=== PATIENT | male | born 1985 | race Caucasian/White ===

== ENCOUNTER 2023-01-03 15:11 | Outpatient (CLI) | payer OTHER, SELFPAY ==
--- NOTE | ~2023-01-03 | US_ITS ---
EXAMINATION: US soft tissue head and neck DATE: 01/03/2023 15:43 INDICATION: Neck swelling. TECHNIQUE: Multiple ultrasound images of the thyroid were obtained. COMPARISON: None. FINDINGS: The right thyroid lobe measures 5.7 x 2.0 x 2.7 cm. The left thyroid lobe measures 5.6 x 1.2 x 2.3 c m. The thyroid isthmus measures 0.9 cm. There is heterogeneous echotexture and echogenicity throughou t the thyroid gland. No discrete nodules identified. Normal vascular flow is present. IMPRESSION: Enlarged, heterogeneous thyroid as can be seen with Christian's thyroiditis and Graves' disease, depe nding on the clinical context. Reviewed, dictated and finalized at location K. IMPRESSION: Enlarged, heterogeneous thyroid as can be seen with Christian's thyroiditis and Graves' disease, depending on the clinical context.
== END 2023-01-03 15:12 | disposition home or self-care (01) ==
PROVIDERS: PCP Internal Medicine Infectious Disease; Visit Provider Internal Medicine Infectious Disease
DX: R22.1 Localized swelling, mass and lump, neck (principal)
CPT/HCPCS: 76536

== ENCOUNTER 2023-02-28 13:49 | Emergency (ER) | payer OTHER, SELFPAY ==
--- NOTE | ~2023-02-28 | US_ITS ---
EXAMINATION:US venous doppler LE BI INDICATION:Leg swelling TECHNIQUE: Multiple grayscale, color flow and Doppler images of the right and left lower extremity de ep venous systems were obtained and reviewed. COMPARISON:No prior studies for comparison. FINDINGS: The common femoral, superficial femoral and popliteal veins demonstrate normal respiratory variation, augmentation and compressibility. Color flow is also seen within the posterior tibial, pe roneal, greater saphenous and profunda veins. IMPRESSION: 1: No lower extremity deep venous thrombosis. Reviewed, dictated and finalized at location A.
[2023-02-28 14:04] VITALS: BP 145/87; PULSE 99; RESP 20; TEMP 36.4; O2SAT 100
[2023-02-28 18:24] VITALS: BP 147/97; PULSE 83; O2SAT 100
--- NOTE | 2023-02-28 18:31 | PC.NURSE ---
US at bedside.
--- NOTE | 2023-02-28 19:16 | PC.NURSE ---
Patient report given to CITLALI Armstrong. All questions answered and care of patient transferred.
[2023-02-28 19:20] LABS: Basophils Absolute Auto 0.1 K/mm3 (0.0-0.1); Basophils Percent Auto 0.6 % (0.2-1.2); Eosinophils Absolute Auto 0.1 K/mm3 (0-0.3); Hematocrit 53.8 % (42.0-52.0); Hemoglobin 17.7 g/dL (14.0-18.0); Immature Granulocyte Absolute 0.05 K/mm3 (0.00-0.031); Immature Granulocyte Percent A 0.4 % (0-0.5); Lymphocytes Absolute Auto 2.83 K/mm3 (0.9-3.2); Lymphocytes Percent Auto 21.5 % (18.3-44.2); Mean Corpuscular HGB Conc 32.9 g/dl (32-36); Mean Corpuscular Hemoglobin 31.5 pg (26-34); Mean Corpuscular Volume 95.7 fl (80-100); Mean Platelet Volume 9.5 fl (7.4-10.4); Monocytes Absolute Auto 0.8 K/mm3 (0.1-0.6); Neutrophils Absolute Auto 9.3 K/mm3 (1.3-6.7); Neutrophils Percent Auto 70.5 % (45.5-73.1); Platelet Count Result 219 k/mm3 (150-375); Red Blood Count 5.62 M/mm3 (4.6-6.20); Red Cell Distribution Width 13.4 % (11.5-14.5); White Blood Count 13.2 K/mm3 (4.5-10.0)
[2023-02-28 19:23] VITALS: BP 142/96; PULSE 82; RESP 14; TEMP 36.4; O2SAT 98
[2023-02-28 19:30] LABS: Prothrombin Time 13.1 Seconds (11.1-14.7)
[2023-02-28 19:43] LABS: Alanine Aminotransferase 48 U/L (6-50); Albumin Level 4.8 g/dL (3.5-5.1); Alkaline Phosphatase 73 U/L (38-126); Anion Gap 9 mmol/L (8-16); Aspartate Amino Transferase 36 U/L (17-59); Bilirubin,Total 0.7 mg/dL (0.2-1.3); Blood Urea Nitrogen 11 mg/dL (9-20); Calcium 9.2 mg/dL (8.4-10.2); Carbon Dioxide 28 mmol/L (22-30); Chloride 102 mmol/L (98-107); Estimated CRCL calculation 148 ml/min; Estimated Glomerular Filt Rate > 60; Glucose 110 mg/dL (65-110); Potassium 3.9 mmol/L (3.4-5.0); Sodium 139 mmol/L (137-145)
[2023-02-28 19:50] LABS: NT Pro B Type Natriuretic Pept < 20 pg/mL (19.9-100)
--- NOTE | 2023-02-28 19:55 | ED.EXTPRO ---
HPI - Extremity Problem General Chief complaint: Extremity Problem,Nontraumatic Stated complaint: swelling to LLE Time Seen by Provider: 02/28/23 18:05 Source: patient Mode of arrival: ambulatory Limitations: no limitations History of Present Illness HPI Narrative: Patient is a 37-year-old male who presents ED with report of lower extremity pain and swelling. Patient reports he woke up 3 to 4 days ago with pain in his left posterior leg and calf. He states it felt like a charley horse. Pain improved on its own but has been intermittent since then. He has been taking ibuprofen. He notes that he forgot to take his gout medicine for several days before the pain began and does feel that this has improved his pain since resuming the medication. He typically experiences gout in his ankles. He denies swelling of his knee or ankle, erythema, warmth. He then states his significant other noticed swelling in his lower extremity today which prompted his presentation. He notes his brother has a history of CHF and he is very concerned that he may be developing this. Patient declares that he is a hypochondriac and states he was freaking out about this today. He denies any chest pain or shortness of breath. Denies previous history of blood clots. Related Data Allergies Allergy/AdvReac Type Severity Reaction Status Date / Time No Known Allergies Allergy Verified 02/28/23 14:08 Review of Systems Review of Systems: CONSTITUTIONAL: Denies fever, chills, or sweats. CARDIOVASCULAR: See HPI. RESPIRATORY: Denies dyspnea. GASTROINTESTINAL: Denies abdominal pain, nausea, vomiting. MUSCULOSKELETAL: See HPI. NEUROLOGIC: Denies headache, numbness, or weakness. PSYCHIATRIC: See HPI. All systems reviewed & are unremarkable except as noted in HPI and below Exam Narrative: GENERAL: Well appearing, morbidly obese with BMI of 42.3, non-toxic, in no acute distress. HEAD: Normocephalic, atraumatic. NECK: Supple. No adenopathy, no masses. RESPIRATORY: Airway patent, respirations nonlabored. Clear to auscultation bilaterally, no rales, rhonchi, wheezing. CARDIOVASCULAR: Regular rate and rhythm without murmurs, rubs, or gallops. Pedal pulses 2+ and equal bilaterally. ABDOMINAL: Soft, nontender, nondistended, no hepatosplenomegaly. Normoactive BS. MUSCULOSKELETAL: Moves all extremities. Strength/ROM intact without gross deformities. No significant lower extremity edema appreciated on exam. No calf tenderness bilaterally. SKIN: Warm, dry, normal color. No rashes. NEURO: A&O X3. Speech clear. Cranial nerves II-XII grossly intact. Steady gait. No ataxic movements. PSYCHIATRIC: Anxious. Normal interaction. Course Vital Signs Vital signs: Vital Signs Temperature 97.6 F 02/28/23 14:04 Pulse Rate 99 02/28/23 14:04 Respiratory Rate 20 02/28/23 14:04 Blood Pressure 145/87 H 02/28/23 14:04 Pulse Oximetry 100 02/28/23 14:04 Oxygen Delivery Room Air 02/28/23 14:04 Temperature 97.6 F 02/28/23 19:23 Pulse Rate 82 02/28/23 19:23 Respiratory Rate 14 02/28/23 19:23 Blood Pressure 142/96 H 02/28/23 19:23 Pulse Oximetry 98 02/28/23 19:23 Oxygen Delivery Room Air 02/28/23 14:04 MDM - Extremity (Nontraumatic) MDM Narrative Medical decision making narrative: Patient presented to ED with concern for left lower extremity cramping, lower extremity edema. Patient's vital stable upon arrival. No evidence of neurovascular compromise. No significant edema noted on my exam. No calf tenderness. No previous history of blood clots. Venous Doppler ultrasound obtained and negative for DVT bilaterally. BNP also undetectable. Remainder basic laboratory studies fairly unremarkable. CBC with minimal leukocytosis of 13.2. Patient denying infectious symptoms. He does appear very anxious. Discussed lab and imaging findings with patient and provided reassurance. Advised him to continue his prophylactic gout medication as this may be
== END 2023-02-28 20:00 | disposition home or self-care (01) ==
PROVIDERS: Emergency Provider Physician Assistant; PCP Internal Medicine Infectious Disease
DX: R25.2 Cramp and spasm (principal); R60.0 Localized edema; M79.89 Other specified soft tissue disorders
CPT/HCPCS: 36415; 80053; 83880; 85025; 85610; 85730; 93970; 99284

== ENCOUNTER 2023-04-16 14:28 | Outpatient (CLI) | payer OTHER, SELFPAY ==
--- NOTE | ~2023-04-16 | US_ITS ---
US arterial ankle brachial ind INDICATION: Bilateral atherosclerosis. TECHNIQUE: Segmental pressures and plethysmographic and Doppler waveforms of the brachial and lower e xtremity arteries were obtained. COMPARISON: None. FINDINGS: Right and left brachial artery pressures of 1:30 mm Hg and 149 mm Hg, respectively, are concordant (n ormal difference <= 30 mmHg). The right ankle-brachial index (GAUTAM) is 1.03 (normal >= 0.9-1.0). The right great toe-brachial index (TBI) is 0.32 (normal >= 0.60). The left GAUTAM is 0.99. The left TBI is 0.59. IMPRESSION: 1. Normal bilateral ankle-brachial indices. 2: Diminished right toe brachial index, consistent with peripheral arterial disease. Reviewed, dictated and finalized at location B. CAL SERVICE TECHNICIAN IMPRESSION: 1. Normal bilateral ankle-brachial indices. 2: Diminished right toe brachial index, consistent with peripheral arterial di sease.
== END 2023-04-16 14:29 | disposition home or self-care (01) ==
PROVIDERS: PCP Internal Medicine Infectious Disease
DX: I70.203 Unspecified atherosclerosis of native arteries of extremities, bilateral legs (principal)
CPT/HCPCS: 93922

== ENCOUNTER 2024-12-01 18:31 | Emergency (ER) | payer BC, OTHER, SELFPAY ==
--- NOTE | ~2024-12-01 | XR_ITS ---
XR toe 2nd LT min 2V Ordering provider: Mario Parra MD History: . INJURY . Comparison: None. FINDINGS: BONES: Fracture in the base of the proximal phalanx of the second toe JOINT SPACES: Normal. SOFT TISSUES: Normal. IMPRESSION: Fracture in the base of the proximal phalanx of the second toe. Reviewed, dictated and finalized at location A.
--- OUTSIDE RECORDS SUMMARY | 2024-12-01 18:33 | XMS_ITS | Encounter Summary ---
Author Organization [facility] Address [address] [facility] [place] [address] Care Team Providers Care Limnology Teacher Name Role Phone Ronnie Martins MD Primary Care Provider Encounter Details Date Type Department Care Team (Late Contact Info) Description 04/30/2023 Telephone [facility] - Endocrinology [address] [place] [address], [facility] [place] [phone] Latrice Jiménez MD [address] [place] [address] [place] [address] Social History Tobacco Use Types Packs/Day Years Used Date Smoking Tobacco: Never Assessed Sex and Gender Information Value Date Recorded Sex Assigned at Not on file Legal Sex Male 6:58 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 Lis. Pharmacy told patient that it could not be filled due to needing Dr authorization. Patient call back number [phone] UNTING REPRESENTATIVE documented in this encounter Plan of Treatment Upcoming Encounters Date Type Department Care Team (Late Contact Info) Description 02/04/2025 10:40 AM CDT Office Visit [facility] - Endocrinology [address] [place] [address], [place] [address] Latrice Jiménez MD [address] [place] [address] [address] [place] [phone] documented as of this encounter Visit Diagnoses Not on filedocumented in this encounter Care Teams Limnology Teacher Relationship Specialty [place] [address] [place] [phone] PCP - General Internal Medicine 01/13/23 documented as of this encounter
--- OUTSIDE RECORDS SUMMARY | 2024-12-01 18:33 | XMS_ITS | Encounter Summary ---
Author Organization [facility] Address [address] [facility] [place] [address] Care Team Providers Care Group Exercise Class Instructor Name Role Phone Ronnie Martins MD Primary Care Provider Encounter Details Date Type Department Care Team (Late st Contact Info) Description 09/08/2024 Telephone [facility] - Endocrinology [address] [place] [address], [place] [address] Latrice Jiménez MD [address] [place] [phone] Social History Tobacco Use Types Packs/Day Years Used Date Smoking Tobacco: Never Smokeless Tobacco: Never Sex and Gender Information Value Date Recorded Sex Assigned at Not on file Legal Sex Male 6:58 AM KAIAWHINA Gender Identity Not on file Sexual Orientation Not on file documented as of this encounter Miscellaneous Notes * Telephone Encounter - Meera Meza - 09/08/2024 3:45 PM CDT Current Provider: Dr. Jiménez Reason for Call: Mr. Isael Chow stated he spoke w his sleep provider at [facility] and he said Dr. Jiménez would have to refill his tirzepatide (Zepbound) 2.5 MG/0.5ML injection. He's been without for a while. His sleep doctor faxed over info 09/08/24 its under his MEDIA TAB in his [employer]. please call w any questions. Patient Call Back Number: [phone] documented in this encounter Plan of Treatment Upcoming Encounters Date Type Department Care Team (Late st Contact Info) Description 02/04/2025 10:40 AM CDT Office Visit [facility] - Endocrinology [address] [place] [address], [place] [address] Latrice Jiménez MD [address] [place] [address] [place] [phone] documented as of this encounter Visit Diagnoses Not on filedocumented in this encounter Care Teams Group Exercise Class Instructor Relationship Specialty Start Date End Date Ronnie Martins MD [address] [place], [place] [phone] PCP - General Internal Medicine 01/13/23 documented as of this encounter
--- OUTSIDE RECORDS SUMMARY | 2024-12-01 18:33 | XMS_ITS | Encounter Summary ---
Author Organization [facility] Address [address] [facility] [address] Care Team Providers Care Laminating Machine Offbearer Name Role Phone Ronnie Martins MD Primary Care Provider Encounter Details Date Type Department Care Team (Late Contact Info) Description 06/10/2023 Telephone [facility] - Centralized Scheduling [address] [place] [phone] Latrice Jiménez MD [address] [place] [address] [address] [place] [address] Social History Tobacco Use Types Packs/Day Years Used Date Smoking Tobacco: Never Assessed Sex and Gender Information Value Date Recorded Sex Assigned at Not on file 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 Gender Identity Not on file Sexual Orientation Not on file documented as of this encounter Plan of Treatment Upcoming Encounters Date Type Department Care Team (Late Contact Info) Description 02/04/2025 10:40 AM CDT Office Visit [facility] - Endocrinology [address] [place] [address], [place] [phone] Latrice Jiménez MD [address] [place] [address] [address] [place] [phone] documented as of this encounter Visit Diagnoses Not on filedocumented in this encounter Care Teams Laminating Machine Offbearer Relationship Specialty Start Date End Date Ronnie Martins MD [address] [place], [place] [phone] PCP - General Internal Medicine 01/13/23 documented as of this encounter
--- OUTSIDE RECORDS SUMMARY | 2024-12-01 18:33 | XMS_ITS | Clinical Summary ---
Author Organization [facility] Address [address] [place] [phone] Phone Care Team Providers Care Diesel Truck Mechanic Name Role Phone Ronnie Martins MD Primary Care Provider [phone] Social History Tobacco Use Types Packs/Day Years Used Date Smoking Tobacco: Never Assessed Sex and Gender Information Value Date Recorded Sex Assigned at Not on file Legal Sex Male 9:44 AM CDT Gender Identity Not on file Sexual Orientation Not on file Plan of Treatment Health Maintenance Due Date Last Done Comments DTAP/TDAP/TD VACCINES (1 - Tdap) 2004 HEPATITIS B VACCINES (1 of 3 - 19+ 3-dose series) 2004 INFLUENZA VACCINE (#1) 2024 HPV VACCINES Aged Out No longer eligi ble based on patient's age to complete this topic Insurance [place] [facility] OPEN ACCESS Care Teams Diesel Truck Mechanic Relationship Specialty Start Date End Date Ronnie Martins MD PCP - General Internal Medicine 12/14/14
--- OUTSIDE RECORDS SUMMARY | 2024-12-01 18:33 | XMS_ITS | Clinical Summary ---
Author Organization [address] Address [address] [place] [phone] Care Team Providers Care Auto Dealership Porter Name Role Phone Ronnie Martins MD Primary Care Provider Allergies No known active allergies Medications albuterol HFA (PROVENTIL HFA,VENTOLIN HFA,PROAIR HFA) 90 mcg/actuation inhaler albuterol sulfate HFA 90 mcg/actuation aerosol inhaler Active pravastatin (PRAVACHOL) 40 mg tablet Take 40 mg by mouth daily Active Active Problems No known active problems Medical History Medical History Date Comments Hyperlipidemia Gout Social History Tobacco Use Types Packs/Day Years Used Date Smoking Tobacco: Every Day Cigarettes 1.5 15 Smokeless Tobacco: Never Tobacco Cessation:Ready to Q uit: No; Counseling Given: Yes Comments:also smokes marijuana Personal Safety Answer Date Recorded Getting School Help Needed Not on file 07/19 Sex and Gender Information Value Date Recorded Sex Assigned at Not on file Legal Sex Male 7:19 PM CDT Gender Identity Not on file Sexual Orientation Not on file Obstetrics History Last Filed Vital Signs Vital Sign Reading Time Taken Comments Blood Pressure 136/86 01/02/2021 7:32 PM CDT Pulse 90 01/02/2021 7:32 PM CDT Temperature 37.1 C (98.7 F) 01/02/2021 7:32 PM CDT Respiratory Rate 18 01/02/2021 7:32 PM CDT Oxygen Saturation 97% 01/02/2021 7:32 PM CDT Inhaled Oxygen Concentration - - Weight 143.8 kg (317 lb) 01/02/2021 7:32 PM CDT Height 185.4 cm (6' 1) 01/02/2021 7:32 PM CDT Body Mass Index 41.82 01/02/2021 7:32 PM CDT Plan of Treatment Health Maintenance Due Date Last Done Comments Depression Screening 1985 Hepatitis C Screening 1985 Varicella Vaccines (1 of 2 - 13+ 2-dose series) 1998 Hepatitis B Screening 08/11/2003 Regular Well Visit/Exam 18-64 08/11/2003 Pneumococcal vaccine <65 (1 of 2 - PCV) 2004 DTaP/Tdap/Td Vaccine (2 - Td or Tdap) 08/28/2028 08/28/2018 Influenza Vaccine Completed 01/28/2024, 02/21/2022 HPV Vaccines Aged Out No longer eligi ble based on patient's age to complete this topic Insurance [facility] Care Teams Auto Dealership Porter Relationship Specialty Start Date End Date Ronnie Martins MD [address] [address] PCP - General Internal Medicine 01/02/21
--- OUTSIDE RECORDS SUMMARY | 2024-12-01 18:33 | XMS_ITS | Encounter Summary ---
Author Organization [facility] Address [address] [facility] [place] [address] Care Team Providers Care Rfid Technician Name Role Phone Ronnie Martins MD Primary Care Provider Encounter Details Date Type Department Care Team (Late Contact Info) Description 05/08/2023 Telephone [facility] - Endocrinology [address] [place] [address], [facility] [place] [phone] Latrice Jiménez MD [address] [place] [phone] Social History Tobacco Use Types Packs/Day Years Used Date Smoking Tobacco: Never Assessed Sex and Gender Information Value Date Recorded Sex Assigned at Not on file Legal Sex Male 6:58 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 Jiménez know that he has an appt with [place] scheduled on Friday05/13/23 at 1pm. Patient is also checking on he's medication refill request that was sent over. Patient call back number is [phone] SPR[place] FORMER BRACE END documented in this encounter Plan of Treatment Upcoming Encounters Date Type Department Care Team ([facility] Contact Info) Description 02/04/2025 10:40 AM CDT Office Visit [facility] - Endocrinology [address] [place] [address], [place] [address] Latrice Jiménez MD [address] [place] [address] [address] [place] [address] documented as of this encounter Visit Diagnoses Not on filedocumented in this encounter Care Teams Rfid Technician Relationship Specialty Start Date End Date Ronnie Martins MD [address] [place], [place] [phone] PCP - General Internal Medicine 01/13/23 documented as of this encounter
--- OUTSIDE RECORDS SUMMARY | 2024-12-01 18:33 | XMS_ITS | Encounter Summary ---
Author Organization [facility] Address [address] [facility] [place] [address] Care Team Providers Care String Top Sealer Name Role Phone Ronnie Martins MD Primary Care Provider Encounter Details Date Type Department Care Team (Late Contact Info) Description 06/30/2024 Telephone [facility] - Endocrinology [address] [place] [address], [facility] [place] [address] Latrice Jiménez MD [address] [place] [phone] Social History Tobacco Use Types Packs/Day Years Used Date Smoking Tobacco: Never Smokeless Tobacco: Never Sex and Gender Information Value Date Recorded Sex Assigned at Not on file 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 Elder Jiménez Reason for Call: Mr. Isael Chow would like to know is rotten egg burp a result of the increase in his Trulicity dosage. Patient Call Back Number: [phone] TY SPECIALIST documented in this encounter Plan of Treatment Upcoming Encounters Date Type Department Care Team (Late Contact Info) Description 02/04/2025 10:40 AM CDT Office Visit [facility] - Endocrinology [address] [place] [address], [place] [address] Latrice Jiménez MD [address] [place] [address] [address] [place] [address] documented as of this encounter Visit Diagnoses Not on filedocumented in this encounter Care Teams String Top Sealer Relationship Specialty Start Date End Date Ronnie Martins MD [address] [place], [place] [phone] PCP - General Internal Medicine 01/13/23 documented as of this encounter
--- OUTSIDE RECORDS SUMMARY | 2024-12-01 18:33 | XMS_ITS | Encounter Summary ---
Author Organization [facility] Address [address] [facility] [place] [address] Care Team Providers Care Chief Contract Officer Name Role Phone Ronnie Martins MD Primary Care Provider Encounter Details Date Type Department Care Team (Late Contact Info) Description 09/10/2024 Telephone [facility] - Centralized Scheduling [facility] [place] [phone] Latrice Jiménez MD [address] [place] [address] [address] [address] Social History Tobacco Use Types Packs/Day Years Used Date Smoking Tobacco: Never Smokeless Tobacco: Never Sex and Gender Information Value Date Recorded Sex Assigned at Not on file 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 Sex Male 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 Gender Identity Not on file Sexual Orientation Not on file documented as of this encounter Plan of Treatment Upcoming Encounters Date Type Department Care Team (Late Contact Info) Description 02/04/2025 10:40 AM CDT Office Visit [facility] - Endocrinology [address] [place] [address], [place] [address] Latrice Jiménez MD [address] [place] [address] [address] [place] [phone] documented as of this encounter Visit Diagnoses Not on filedocumented in this encounter Care Teams Chief Contract Officer Relationship Specialty Start Date End Date AjRonnie rosenbaum MD [address] [place], [place] [phone] PCP - General Internal Medicine 01/13/23 documented as of this encounter
--- OUTSIDE RECORDS SUMMARY | 2024-12-01 18:33 | XMS_ITS | Encounter Summary ---
Author Organization [facility] Address [address] [facility] [place] [address] Care Team Providers Care Director Of Reimbursement Name Role Phone Ronnie Martins MD Primary Care Provider Reason for Visit * Reason Onset Date Comments Update 05/13/2023 Encounter Details Date Type Department Care Team (Late Contact Info) Description 05/13/2023 Telephone [facility] - Centralized Scheduling [address] [place] [phone] Latrice Jiménez MD [address] [place] [phone] Update Social History Tobacco Use Types Packs/Day Years Used Date Smoking Tobacco: Never Assessed Sex and Gender Information Value Date Recorded Sex Assigned at Not on file Legal Sex Male 6:58 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 Gender Identity Not on file Sexual Orientation Not on file documented as of this encounter Miscellaneous Notes * Telephone Encounter - Amy Evans - 05/13/2023 3:38 PM CST Patient called stating he had his Echo and labwork done today At [facility] MP TRAWLER CAPTAIN documented in this encounter Plan of Treatment Upcoming Encounters Date Type Department Care Team (Late Contact Info) Description 02/04/2025 10:40 AM CDT Office Visit [facility] - Endocrinology [address] [place] [address], [place] [address] Latrice Jiménez MD [address] [facility] [address] [place] [phone] documented as of this encounter Visit Diagnoses Not on filedocumented in this encounter Care Teams Director Of Reimbursement Relationship Specialty Start Date End Date Ronnie Martins MD [address] [place], [place] [phone] PCP - General Internal Medicine 01/13/23 documented as of this encounter
--- OUTSIDE RECORDS SUMMARY | 2024-12-01 18:33 | XMS_ITS | Clinical Summary ---
Author Organization [facility] Address [address] [place] [address] Care Team Providers Care Coin Machine Collector Name Role Phone Ronnie Martins MD Primary Care Provider Source Comments [facility],non-owned Affiliates and Associated Physician Practices is amultiple site organization consisting of ambulatory clinics and hospital sitesin [place], [place], [place] and [place]. This disclosure is being madepursuant to the Care Everywhere program and may not contain all information available regarding this patient. Last updated 18.[facility] Allergies No known active allergies Medications * Be aware that medications may not be up to date on this document. Alwaysverify current medications with the patient. hydroCHLOROthia zide (Hydrodiuril) 25 MG tablet 03/27/20 23 Active allopurinol (Zyloprim) 300 MG tablet Take 1 tablet every day by oral route around the clock for 90 days. Active ezetimibe (Zetia) 10 MG tablet Take 1 tablet every day by oral route at bedtime for 90 days. Active hydrOXYzine HCl (Atarax) 25 MG tablet Take 1 (one) tablet by mouth every 6 hours as needed Active albuterol HFA (Proventil; Ventolin; Proair) 108 (90 Base) MCG/ACT inhaler Inhale 2 inhalations every 6 hours by inhalation route as needed for 30 days. Active ibuprofen (Motrin) 600 MG tablet Take 1 tablet 3 times a day by oral route with meals for 30 days. 01/02/20 23 Active losartan (Cozaar) 25 MG tablet Take 1 tablet every day by oral route as directed for 90 days. Active pravastatin (Pravachol) 10 MG tablet Take 1 (one) tablet by mouth at bedtime Active ONETOUCH DELICA PLUS 30G FINE LANCETSIndicati ons:Type 2 diabetes mellitus without complication, without long-term current use of insulin ([facility]) Use 1 Each once daily 100 Each 06/29/19 25 Active Blood Glucose Monitoring Suppl (ONE TOUCH ULTRA 2) w/Device KITIndications: Type 2 diabetes mellitus without complication, without long-term current use of insulin ([facility]) Use 1 Each as directed 1 kit 06/29/19 25 Active blood glucose (OneTouch Ultra Blue Test) test stripIndication s:Type 2 diabetes mellitus without complication, without long-term current use of insulin ([facility]) Use 1 (one) strip once daily 100 strip 06/29/19 25 Active Insulin Pen Needle 32G X 4 MM MISCIndications :Type 2 diabetes mellitus without complication, without long-term current use of insulin ([facility]),MAGGIE (obstructive sleep apnea),Class 3 severe obesity with serious comorbidity and body mass index (BMI) of 40.0 to 44.9 in adult, unspecified obesity type (HCC) 1 Each by Injection route once daily 100 Each 08/20/19 25 Active tirzepatide (Zepbound) 2.5 MG/0.5ML injectionIndica tions:MAGGIE (obstructive sleep apnea),Class 3 severe obesity with serious comorbidity and body mass index (BMI) of 40.0 to 44.9 in adult, unspecified obesity type (HCC) Inject 2.5 (two and one-half) mg subcutaneously every 7 days Start 2.5 mg weekly, go up next dose in 4 weeks if tolerated 2 mL 2 08/20/19 25 Active tirzepatide (Zepbound) 5 MG/0.5ML injectionIndica tions:MAGGIE (obstructive sleep apnea),Class 3 severe obesity with serious comorbidity and body mass index (BMI) of 40.0 to 44.9 in adult, unspecified obesity type (HCC) Inject 5 (five) mg subcutaneously every 7 days After completion of 2.5 mg dosage for at least 4 weeks 2 mL 3 08/20/19 25 Active liraglutide (Victoza) 18 MG/3ML penIndications: Type 2 diabetes mellitus without complication, without long-term current use of insulin (HCC) Inject 1.2 mg subcutaneously once daily 6 mL 09/01/19 25 Active Semaglutide(0.2 5 or 0.5MG/DOS) 2 MG/3ML Solution Pen-injector (Ozempic (0.25 or 0.5 MG/DOSE))Indica tions:Type 2 diabetes mellitus with hyperglycemia, with long-term current use of insulin (HCC) Inject 0.25-0.5 mg subcutaneously every 7 days (once a week) Start 0.25 mg weekly for 4 weeks then go up to 0.5 mg weekly 3 mL 10/19/19 25 Active Active Problems Problem Noted Date Diagnosed Date MAGGIE (obstructive sleep apnea) 08/19/2024 Class 3 severe obesity with body mass index (BMI) of 40.0 to 44.9 in adult 08/19/2024 Type 2 diabetes mellitus wit h hyperglycemia, with long-term current use of insulin 08/19/2024 Encounters Date Type Department Care Team Description 10/28/2024 Travel 10/20/2024 Telephone [facility] - Endocrinology [address] [place] [phone] Latrice Jiménez MD Pre Authorization 10/19/2024 Telephone [facility] Endocrinology [address] [place] [phone] Latrice Jiménez MD Question 10/13/2024 Telephone [facility] Endocrinology [address] [place] [phone] Latrice Jiménez MD 10/08/2024 Telephone [facility] Endocrinology [address] [place] [phone] Татьяна Dillon RN General 10/08/2024 Telephone [facility] - Endocrinology [address] [place] [phone] Latrice Jiménez MD Med Question 09/10/2024 Telephone [facility] - Centralized Scheduling [address] [place] [phone] Latrice Jiménez MD 09/08/2024 Telephone [facility] - Endocrinology [address] [place] [phone] Latrice Jiménez MD from Last 3 Months Social History Tobacco Use Types Packs/Day Years Used Date Smoking Tobacco: Never Smokeless Tobacco: Never Sex and Gender Information Value Date Recorded Sex Assigned at Not on file 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 Gender Identity Not on file Sexual Orientation Not on file Last Filed Vital Signs Vital Sign Reading Time Taken Comments Blood Pressure 123/79 06/15/2024 10:31 AM MARBLE INSTALLER Pulse 106 06/15/2024 10:31 AM MARBLE INSTALLER Temperature - - Respiratory Rate - - Oxygen Saturation 95% 06/15/2024 10:31 AM MARBLE INSTALLER Inhaled Oxygen Concentration - - Weight 150.6 kg (332 lb) 06/15/2024 10:31 AM MARBLE INSTALLER Height 185.4 cm (6' 1) 06/15/2024 10:31 AM MARBLE INSTALLER Body Mass Index 43.8 06/15/2024 10:31 AM MARBLE INSTALLER Plan of Treatment Upcoming Encounters Date Type Department Care Team (Late st Contact Info) Description 02/04/2025 10:40 AM CDT Office Visit [facility] - Endocrinology [address] [place] [phone] Latrice Jiménez MD [address] [place] [address] [place] [address] Health Maintenance Due Date Last Done Comments HIV SCREENING 2000 HEPATITIS C SCREENING 08/06/2003 DIABETES-SERUM CREATININE 08/11/2003 DTAP/TDAP/TD VACCINES (1 - Tdap) 2004 HEPATITIS B VACCINE (1 of 3 - 19+ 3-dose series) 2004 PNEUMOCOCCAL VACCINE (1 of 2 - PCV) 2004 HPV VACCINE (1 - 3-dose SCDM series) 2012 COVID-19 VACCINE ( - 2023-2 5 season) 2024 DEPRESSION SCREENING 05/19/2024 DIABETES - URINE PROTEIN SCREENING 05/19/2024 DIABETES RETINOPATHY SCREENING 08/19/2024 DIABETES-FOOT EXAM WITH MONOFILAMENT 08/19/2024 DIABETES-HGB A1C 12/13/2024 06/15/2024, 04/29/2023 INFLUENZA VACCINE (#1) 2025 4, 02/21/2022 ZOSTER VACCINE (1 of 2) 08/11/2035 HIB VACCINE Aged Out No longer eligi ble based on patient's age to complete this topic MENINGOCOCCAL (Group B) VACCINE SHARED DECISION-MAKING Aged Out No longer eligible based on patient's age to complete this topic MENINGOCOCCAL GROUPS A/C/Y/W VACCINE Aged Out No longer eligible b ased on patient's age to complete this topic Procedures Procedure Name Priority Date/Time Associated Diagnosis Comments HEMOGLOBIN A1C - POINT OF CARE (AMB) [facility] Routine 06/15/2024 10:39 AM MARBLE INSTALLER Type 2 diabetes mellitus without complication, without long-term current use of insulin from Last 3 Months or Most Recently Relevant to Health Maintenance Results * HEMOGLOBIN A1C - POINT OF CARE (AMB) [facility] (06/15/2024 10:39 AM MARBLE INSTALLER) [facility] [address] Hemoglobin A1c POCT 6.0 % [facility] [address] BLOOD SPECIMEN / Unknown 06/15/2024 10:39 AM MARBLE INSTALLER Latrice Jiménez MD LAB - POINT OF CARE ORDERABLES F inal Result [facility] [address], [facility] [address] [place] [address], [facility] [phone] from Last 3 Months or Most Recently Relevant to Health Maintenance Insurance [facility] Care Teams Coin Machine Collector Relationship Specialty [place] [address] [place] [phone] PCP - General Internal Medicine 01/13/23
--- OUTSIDE RECORDS SUMMARY | 2024-12-01 18:33 | XMS_ITS | Referral Summary ---
Author Organization [address] Address [address] [place] [phone] Care Team Providers Care Layout Inspector Name Role Phone Ronnie Martins MD Primary Care Provider Allergies No known active allergies Medications albuterol HFA (PROVENTIL HFA,VENTOLIN HFA,PROAIR HFA) 90 mcg/actuation inhaler albuterol sulfate HFA 90 mcg/actuation aerosol inhaler Active pravastatin (PRAVACHOL) 40 mg tablet Take 40 mg by mouth daily Active Active Problems No known active problems Social History Tobacco Use Types Packs/Day Years [...] 01/02/2021 7:32 PM CDT Plan of Treatment Not on file Insurance [facility] Care Teams Layout Inspector Relationship Specialty Start Date End Date Ronnie Martins MD [address] [place] [phone] PCP - General Internal Medicine 01/02/21
--- OUTSIDE RECORDS SUMMARY | 2024-12-01 18:33 | XMS_ITS | Encounter Summary ---
Author Organization [facility] Address [address] [facility] [place] [address] Care Team Providers Care Care Transition Coordinator Name Role Phone Ronnie Martins MD Primary Care Provider Encounter Details Date Type Department Care Team (Late st Contact Info) Description 08/13/2024 Telephone [facility] - Endocrinology [address] [place] [address], [facility] [place] [address] Latrice Jiménez MD [address] [place] [phone] Social History Tobacco Use Types Packs/Day Years Used Date Smoking Tobacco: Never Smokeless Tobacco: Never Sex and Gender Information Value Date Recorded Sex Assigned at Not on file 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 Jiménez Reason for Call: Dr. Jiménez changed Mr. Kirkland Kevinrosalie's insulin to liraglutide (Victoza) 18 MG/3ML pen, when he opened it it has no needles He has three pens, is he to get needles. Please advise. [id number] [facility] [phone] [address] Please advise. His girlfriend Patricia called. Patient Call Back Number: [phone] documented in this encounter Plan of Treatment Upcoming Encounters Date Type Department Care Team (Late st Contact Info) Description 02/04/2025 10:40 AM CDT Office Visit [facility] - Endocrinology [address] [place] [address], [place] [phone] Latrice Jiménez MD [address] [place] [address] [place] [phone] documented as of this encounter Visit Diagnoses Not on filedocumented in this encounter Care Teams Care Transition Coordinator Relationship Specialty Start Date End Date Ronnie Martins MD [address] [place] [phone] PCP - General Internal Medicine 01/13/23 documented as of this encounter
--- OUTSIDE RECORDS SUMMARY | 2024-12-01 18:33 | XMS_ITS | Encounter Summary ---
Author Organization [facility] Address [address] [place] [address] Care Team Providers Care Mural Painter Name Role Phone Ronnie Martins MD Primary Care Provider Encounter Details Date Type Department Care Team (Late Contact Info) Description 04/09/2024 Telephone [facility] - Centralized Scheduling [address] [place] [phone] Latrice Jiménez MD [address] [place] [address] [address] [place] [address] Social History Tobacco Use Types Packs/Day Years Used Date Smoking Tobacco: Never Assessed Sex and Gender Information Value Date Recorded Sex Assigned at Not on file 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 Gender Identity Not on file Sexual Orientation Not on file documented as of this encounter Plan of Treatment Upcoming Encounters Date Type Department Care Team (Late Contact Info) Description 02/04/2025 10:40 AM CDT Office Visit [facility] - Endocrinology [address] [place] [address], [place] [phone] Latrice Jiménez MD [address] [place] [address] [address] [place] [phone] documented as of this encounter Visit Diagnoses Not on filedocumented in this encounter Care Teams Mural Painter Relationship Specialty Start Date End Date Ronnie Martins MD [address] [place], [place] [phone] PCP - General Internal Medicine 01/13/23 documented as of this encounter
--- OUTSIDE RECORDS SUMMARY | 2024-12-01 18:33 | XMS_ITS | Encounter Summary ---
Author Organization [facility] Address [address] [facility] [place] [address] Care Team Providers Care Tractor Crane Engineer Name Role Phone Ronnie Martins MD Primary Care Provider Encounter Details Date Type Department Care Team (Late st Contact Info) Description 05/07/2023 Telephone [facility] - Endocrinology [address] [place] [address], [facility] [place] [address] Latrice Jiménez MD [address] [place] [phone] Social History Tobacco Use Types Packs/Day Years Used Date Smoking Tobacco: Never Assessed Sex and Gender Information Value Date Recorded Sex Assigned at Not on file Legal Sex Male 6:[address] COUNSELLOR Gender Identity Not on file Sexual Orientation Not on file documented as of this encounter Miscellaneous Notes * Telephone Encounter - Amalia Ramirez - 05/07/2023 4:08 PM CST Patient called called for prescription refill of Trulicity. Pharmacy needs Dr authorization. Patient has been taking Metformin in the mean time. [id number] - [phone] [facility] [phone] [address] Patient call back number is [phone] COUNSELLOR documented in this encounter Plan of Treatment Upcoming Encounters Date Type Department Care Team (Late st Contact Info) Description 02/04/2025 10:40 AM CDT Office Visit [facility] - Endocrinology [address] [place] [address], [place] [phone] Latrice Jiménez MD [address] [place] [address] [address] [place] [phone] documented as of this encounter Visit Diagnoses Not on filedocumented in this encounter Care Teams Tractor Crane Engineer Relationship Specialty Start Date End Date Ronnie Martins MD [address] [place], [place] [phone] PCP - General Internal Medicine 01/13/23 documented as of this encounter
--- OUTSIDE RECORDS SUMMARY | 2024-12-01 18:33 | XMS_ITS | Encounter Summary ---
Author Organization [facility] Address [address] [facility] [place] [address] Care Team Providers Care Glass Blowing Instructor Name Role Phone Ronnie Martins MD Primary Care Provider Encounter Details Date Type Department Care Team (Late Contact Info) Description 08/25/2024 Telephone [facility] - Centralized Scheduling [facility]ly [facility], [facility] [place] [phone] Latrice Jiménez MD [address] [place] [address] [address] [place] [address] Social History Tobacco Use Types Packs/Day Years Used Date Smoking Tobacco: Never Smokeless Tobacco: Never Sex and Gender Information Value Date Recorded Sex Assigned at Not on file 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 Gender Identity Not on file Sexual Orientation Not on file documented as of this encounter Plan of Treatment Upcoming Encounters Date Type Department Care Team (Late Contact Info) Description 02/04/2025 10:40 AM CDT Office Visit [facility] - Endocrinology [address] [place] [address], [place] [address] Latrice Jiménez MD [address] [place] [address] [address] [place] [phone] documented as of this encounter Visit Diagnoses Not on filedocumented in this encounter Care Teams Glass Blowing Instructor Relationship Specialty Start Date End Date AjRonnie rosenbaum MD [address] [place], [place] [phone] PCP - General Internal Medicine 01/13/23 documented as of this encounter
--- OUTSIDE RECORDS SUMMARY | 2024-12-01 18:33 | XMS_ITS | Encounter Summary ---
Author Organization [facility] Address [address] [facility] [place] [address] Care Team Providers Care City Secretary Name Role Phone Ronnie Martins MD Primary Care Provider Encounter Details Date Type Department Care Team (Late st Contact Info) Description 10/13/2024 Telephone [facility] - Endocrinology [address] [place] [address], [facility] [place] [address] Latrice Jiménez MD [address] [place] [phone] Social History Tobacco Use Types Packs/Day Years Used Date Smoking Tobacco: Never Smokeless Tobacco: Never Sex and Gender Information Value Date Recorded Sex Assigned at Not on file 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 Jiménez Reason for Call: Mr. Isael Chow's girlfriend Patricia called in re: rotten egg burps he is having after the switch from TRULICITY to liraglutide (Victoza) 18 MG/3ML pen, she says he's been having these burps for the last 2 to 3 days. Please call, have nurse call ISABELLA. All else is well, just. Patient Call Back Number: [phone] documented in this encounter Plan of Treatment Upcoming Encounters Date Type Department Care Team (Late st Contact Info) Description 02/04/2025 10:40 AM CDT Office Visit [facility] - Endocrinology [address] [place] [address], [place] [address] Latrice Jiménez MD [address] [place] [address] [place] [address] documented as of this encounter Visit Diagnoses Not on filedocumented in this encounter Care Teams City Secretary Relationship Specialty Start Date End Date Ronnie Martins MD [address] [place], [place] [phone] PCP - General Internal Medicine 01/13/23 documented as of this encounter
--- OUTSIDE RECORDS SUMMARY | 2024-12-01 18:33 | XMS_ITS | Encounter Summary ---
Author Organization [facility] Address [address] [place] [address] Care Team Providers Care Human Resources Mgr Name Role Phone Ronnie Martins MD Primary Care Provider Encounter Details Date Type Department Care Team (Late st Contact Info) Description 06/30/2024 Telephone [facility] - Endocrinology [address] [place] [address], [facility] [place] [address] Latrice Jiménez MD [address] [place] [address] [place] [address] Social History Tobacco Use Types Packs/Day Years Used Date Smoking Tobacco: Never Smokeless Tobacco: Never Sex and Gender Information Value Date Recorded Sex Assigned at Not on file 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 Drug type:Contour Next Gen Level 1 3847 MG/ DL Level 2 111-138 Test Strips Pharmacy:[id number] [facility] [phone] Patient call back number: [phone] . Patients GAVIN : 06/15/2024 Upcoming appointment scheduled for : 10/26/2024 SPECIALIST documented in this encounter Plan of Treatment Upcoming Encounters Date Type Department Care Team (Late st Contact Info) Description 02/04/2025 10:40 AM CDT Office Visit [facility] - Endocrinology [address] [place] [address], [place] [address] Latrice Jiménez MD [address] [place] [address] [place] [address] documented as of this encounter Visit Diagnoses Not on filedocumented in this encounter Care Teams Human Resources Mgr Relationship Specialty Start Date End Date Ronnie Martins MD [address] [place], [place] [phone] PCP - General Internal Medicine 01/13/23 documented as of this encounter
--- OUTSIDE RECORDS SUMMARY | 2024-12-01 18:33 | XMS_ITS | Encounter Summary ---
Author Organization [facility] Address [address] [place] [address] Care Team Providers Care School Guidance Counselor Name Role Phone Ronnie Martins MD Primary Care Provider Encounter Details Date Type Department Care Team (Late st Contact Info) Description 08/17/2024 Telephone [facility] - Endocrinology [address] [place] [address], [facility] [place] [address] Latrice Jiménez MD [address] [place] [phone] Social History Tobacco Use Types Packs/Day Years Used Date Smoking Tobacco: Never Smokeless Tobacco: Never Sex and Gender Information Value Date Recorded Sex Assigned at Not on file 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 Jiménez Reason for Call: Mr. Isael Chow's girlfrind just called again, re his needles. Went to pharmacy this morning and there was no script. She said they were called Friday. Please advise. Mr. Isael Tellez's insulin to liraglutide (Victoza) 18 MG/3ML pen, when he opened it it has no needles He has three pens, is he to get needles. [id number] [facility] [phone] Please advise. His girlfriend Patricia called. Patient Call Back Number: [phone] documented in this encounter Plan of Treatment Upcoming Encounters Date Type Department Care Team (Late st Contact Info) Description 02/04/2025 10:40 AM CDT Office Visit [facility] - Endocrinology [address] [place] [address], [place] [phone] Latrice Jiménez MD [address] [place] [address] [place] [phone] documented as of this encounter Visit Diagnoses Not on filedocumented in this encounter Care Teams School Guidance Counselor Relationship Specialty Start Date End Date Ronnie Martins MD [address] [place], [place] [phone] PCP - General Internal Medicine 01/13/23 documented as of this encounter
[2024-12-01 18:35] VITALS: BP 141/95; PULSE 94; RESP 16; O2SAT 99
--- NOTE | 2024-12-01 20:01 | ED.GENADULT ---
HPI - General Adult General Chief complaint: Unspecified Stated complaint: LEFT 2ND TOE INJURY Time Seen by Provider: 12/01/24 19:25 History of Present Illness HPI narrative: Patient presenting here with injury to left 2nd toe, started about a week ago while at work, then he accidentally kicked the TV stand yesterday and the pain became much worse. Related Data Allergies Allergy/AdvReac Type Severity Reaction Status Date / Time No Known Allergies Allergy Verified 12/01/24 18:33 Review of Systems Review of Systems: All systems reviewed & are unremarkable except as noted in HPI and below Exam Narrative: EXAMINATION OF ORGAN SYSTEMS/BODY AREAS: Constitutional: Vital signs per nursing GENERAL:[No acute distress, non-toxic appearing.] HEAD: Normal with no signs of head trauma. EYES: EOMI, conjunctiva normal ENT: Hearing grossly intact LUNGS: Nonlabored breathing. HEART: Normal DP pulse ABD: [Soft], [nontender to palpation] EXT: Tenderness to palpation to the left 2nd toe SKIN: [No rashes or lesions.] NEURO: [Alert and oriented x 3. No gross focal sensory or strength deficits.] PSYCH: Normal affect Course Vital Signs Vital signs: Vital Signs Pulse Rate 94 12/01/24 18:35 Respiratory Rate 16 12/01/24 18:35 Blood Pressure 141/95 H 12/01/24 18:35 Pulse Oximetry 99 12/01/24 18:35 Pulse Rate 94 12/01/24 18:35 Respiratory Rate 16 12/01/24 18:35 Blood Pressure 141/95 H 12/01/24 18:35 Pulse Oximetry 99 12/01/24 18:35 Medical Decision Making [facility] Narrative Medical decision making narrative: Patient presents here after injuring his left 2nd toe, initially a week ago then made worse yesterday. X-ray here shows tiny fracture left proximal phalanx, nondisplaced. Patient placed in hard shoe, given follow-up information to bobbin winder, discussed with him, stable for discharge with return precautions. Vital Signs Vital Signs: Vital Signs Pulse Rate 94 12/01/24 18:35 Respiratory Rate 16 12/01/24 18:35 Blood Pressure 141/95 H 12/01/24 18:35 Pulse Oximetry 99 12/01/24 18:35 Pulse Rate 94 12/01/24 18:35 Respiratory Rate 16 12/01/24 18:35 Blood Pressure 141/95 H 07/16/25 18:35 Pulse Oximetry 99 12/01/24 18:35 Discharge Plan Discharge Clinical Impression: Fracture of toe Patient Disposition: Home Condition: Stable Instructions: Toe Fracture (ED) Additional Instructions: Please follow-up with foot and ankle specialist. You can always return to the emergency room for any further issues. Patient Language: Italian Follow-up/Referrals: Lakshmi,Deneen Trujillo [Primary Care Provider] - Sam Gibbs Jr., DPM [Physician] - 2 Days
--- OUTSIDE RECORDS SUMMARY | 2024-12-01 20:04 | XMS_ITS | Encounter Summary ---
Author Organization [facility] Address [address] [facility] [place] [address] Care Team Providers Care Processing Clerk Name Role Phone Ronnie Martins MD Primary Care Provider Encounter Details Date Type Department Care Team (Late Contact Info) Description 08/25/2024 Telephone [facility] - Centralized Scheduling [facility] [place] [phone] Latrice Jiménez MD [address] [place] [address] [address] [place] [address] Social History Tobacco Use Types Packs/Day Years Used Date Smoking Tobacco: Never Smokeless Tobacco: Never Sex and Gender Information Value Date Recorded Sex Assigned at Not on file 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 Gender Identity Not on file Sexual Orientation Not on file documented as of this encounter Plan of Treatment Upcoming Encounters Date Type Department Care Team (Late Contact Info) Description 02/04/2025 10:40 AM CDT Office Visit [facility] - Endocrinology [address] [place] [address], [place] [address] Latrice Jiménez MD [address] [place] [address] [address] [place] [phone] documented as of this encounter Visit Diagnoses Not on filedocumented in this encounter Care Teams Processing Clerk Relationship Specialty Start Date End Date AjRonnie rosenbaum MD [address] [place], [place] [phone] PCP - General Internal Medicine 01/13/23 documented as of this encounter
--- OUTSIDE RECORDS SUMMARY | 2024-12-01 20:04 | XMS_ITS | Encounter Summary ---
Author Organization [facility] Address [address] [place] [address] Care Team Providers Care Glass Finisher Name Role Phone Ronnie Martins MD Primary Care Provider Encounter Details Date Type Department Care Team (Late Contact Info) Description 05/08/2023 Telephone [facility] - Endocrinology [address] [place] [address], [facility] [place] [phone] Latrice Jiménez MD [address] [place] [address] Social History Tobacco Use Types Packs/Day Years Used Date Smoking Tobacco: Never Assessed Sex and Gender Information Value Date Recorded Sex Assigned at Not on file 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 Jiménez know that he has an appt with [place] scheduled on Friday05/13/23 at 1pm. Patient is also checking on he's medication refill request that was sent over. Patient call back number is [phone] CH EXAMINER documented in this encounter Plan of Treatment Upcoming Encounters Date Type Department Care Team ([facility] Contact Info) Description 02/04/2025 10:40 AM CDT Office Visit [facility] - Endocrinology [address] [place] [address], [place] [address] Latrice Jiménez MD [address] [place] [address] [address] [place] [address] documented as of this encounter Visit Diagnoses Not on filedocumented in this encounter Care Teams Glass Finisher Relationship Specialty Start Date End Date Ronnie Martins MD [address] [place], [place] [phone] PCP - General Internal Medicine 01/13/23 documented as of this encounter
--- OUTSIDE RECORDS SUMMARY | 2024-12-01 20:04 | XMS_ITS | Encounter Summary ---
Author Organization [facility] Address [address] [facility] [place] [address] Care Team Providers Care Docent Coordinator Name Role Phone Ronnie Martins MD Primary Care Provider Encounter Details Date Type Department Care Team (Late Contact Info) Description 09/10/2024 Telephone [facility] - Centralized Scheduling [facility] [place] [phone] Latrice Jiménez MD [address] [place] [address] [address] [address] Social History Tobacco Use Types Packs/Day Years Used Date Smoking Tobacco: Never Smokeless Tobacco: Never Sex and Gender Information Value Date Recorded Sex Assigned at Not on file 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 Gender Identity Not on file Sexual Orientation Not on file documented as of this encounter Plan of Treatment Upcoming Encounters Date Type Department Care Team (Late Contact Info) Description 02/04/2025 10:40 AM CDT Office Visit [facility] - Endocrinology [address] [place] [address], [place] [address] Latrice Jiménez MD [address] [place] [address] [address] [place] [phone] documented as of this encounter Visit Diagnoses Not on filedocumented in this encounter Care Teams Docent Coordinator Relationship Specialty Start Date End Date AjRonnie rosenbaum MD [address] [place], [place] [phone] PCP - General Internal Medicine 01/13/23 documented as of this encounter
--- OUTSIDE RECORDS SUMMARY | 2024-12-01 20:04 | XMS_ITS | Encounter Summary ---
Author Organization [facility] Address [address] [facility] [place] [address] Care Team Providers Care Shipyard Laborer Name Role Phone Ronnie Martins MD Primary Care Provider Encounter Details Date Type Department Care Team (Late Contact Info) Description 04/09/2024 Telephone [facility] - Centralized Scheduling [address] [place] [phone] Latrice Jiménez MD [address] [place] [address] [address] [place] [address] Social History Tobacco Use Types Packs/Day Years Used Date Smoking Tobacco: Never Assessed Sex and Gender Information Value Date Recorded Sex Assigned at Not on file 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 Gender Identity Not on file Sexual Orientation Not on file documented as of this encounter Plan of Treatment Upcoming Encounters Date Type Department Care Team (Late Contact Info) Description 02/04/2025 10:40 AM CDT Office Visit [facility] - Endocrinology [address] [place] [address], [place] [phone] Latrice Jiménez MD [address] [place] [address] [address] [place] [phone] documented as of this encounter Visit Diagnoses Not on filedocumented in this encounter Care Teams Shipyard Laborer Relationship Specialty Start Date End Date Ronnie Martins MD [address] [place], [place] [phone] PCP - General Internal Medicine 01/13/23 documented as of this encounter
--- OUTSIDE RECORDS SUMMARY | 2024-12-01 20:04 | XMS_ITS | Referral Summary ---
Author Organization [address] Address [address] [place] [phone] Care Team Providers Care Senior Ui Ux Developer Name Role Phone Ronnie Martins MD Primary [...] Plan of Treatment Not on file Insurance [facility] Care Teams Senior Ui Ux Developer Relationship Specialty Start Date End Date Ronnie Martins MD [address] [place] [address] PCP - General Internal Medicine 01/02/21
--- OUTSIDE RECORDS SUMMARY | 2024-12-01 20:04 | XMS_ITS | Encounter Summary ---
Author Organization [facility] Address [address] [facility] [place] [address] Care Team Providers Care Local Area Network Systems Adminstrator Name Role Phone Ronnie Martins MD Primary Care Provider Encounter Details Date Type Department Care Team (Late st Contact Info) Description 08/13/2024 Telephone [facility] - Endocrinology [address] [place] [address], [facility] [address] Latrice Jiménez MD [address] [place] [address] Social History Tobacco Use Types Packs/Day Years Used Date Smoking Tobacco: Never Smokeless Tobacco: Never Sex and Gender Information Value Date Recorded Sex Assigned at Not on file 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 Please advise. [id number] [facility] [phone] [address] Please advise. His girlfriend Patricia called. Patient Call Back Number: [phone] documented in this encounter Plan of Treatment Upcoming Encounters Date Type Department Care Team (Late st Contact Info) Description 02/04/2025 10:40 AM CDT Office Visit [facility] - Endocrinology [address] [place] [address], [place] [phone] Latrice Jiménez MD [address] [place] [address] [place] [phone] documented as of this encounter Visit Diagnoses Not on filedocumented in this encounter Care Teams Local Area Network Systems Adminstrator Relationship Specialty Start Date End Date Ronnie Martins MD [address] [place] [phone] PCP - General Internal Medicine 01/13/23 documented as of this encounter
--- OUTSIDE RECORDS SUMMARY | 2024-12-01 20:04 | XMS_ITS | Encounter Summary ---
Author Organization [facility] Address [address] [place] [address] Care Team Providers Care Project Administrative Assistant Name Role Phone Ronnie Martins MD Primary Care Provider Encounter Details Date Type Department Care Team (Late Contact Info) Description 06/30/2024 Telephone [facility] - Endocrinology [address] [place] [address], [facility] [place] [address] Latrice Jiménez MD [address] [place] [address] Social History Tobacco Use Types Packs/Day Years Used Date Smoking Tobacco: Never Smokeless Tobacco: Never Sex and Gender Information Value Date Recorded Sex Assigned at Not on file 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 Elder Jiménez Reason for Call: Mr. Isael Chow would like to know is rotten egg burp a result of the increase in his Trulicity dosage. Patient Call Back Number: [phone] ATOR REPAIRER documented in this encounter Plan of Treatment Upcoming Encounters Date Type Department Care Team (Late Contact Info) Description 02/04/2025 10:40 AM CDT Office Visit [facility] - Endocrinology [address] [place] [address], [place] [address] Latrice Jiménez MD [address] [place] [address] [address] [place] [address] documented as of this encounter Visit Diagnoses Not on filedocumented in this encounter Care Teams Project Administrative Assistant Relationship Specialty Start Date End Date Ronnie Martins MD [address] [place], [place] [phone] PCP - General Internal Medicine 01/13/23 documented as of this encounter
--- OUTSIDE RECORDS SUMMARY | 2024-12-01 20:04 | XMS_ITS | Encounter Summary ---
Author Organization [facility] Address [address] [facility] [place] [address] Care Team Providers Care Cone Former Name Role Phone Ronnie Martins MD Primary Care Provider Encounter Details Date Type Department Care Team (Late Contact Info) Description 04/30/2023 Telephone [facility] - Endocrinology [address] [place] [address], [facility] [place] [phone] Latrice Jiménez MD [address] [place] [address] [place] [address] Social History Tobacco Use Types Packs/Day Years Used Date Smoking Tobacco: Never Assessed Sex and Gender Information Value Date Recorded Sex Assigned at Not on file Legal Sex Male 6:58 AM ADMISSION NURSE COORDINATOR Gender Identity Not on file Sexual Orientation Not on file documented as of this encounter Miscellaneous Notes * Telephone Encounter - Amalia Ramirez - 04/30/2023 4:05 PM CST 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 Lis. Pharmacy told patient that it could not be filled due to needing Dr authorization. Patient call back number [phone] SSION NURSE COORDINATOR documented in this encounter Plan of Treatment Upcoming Encounters Date Type Department Care Team (Late Contact Info) Description 02/04/2025 10:40 AM CDT Office Visit [facility] - Endocrinology [address] [place] [address], [place] [address] Latrice Jiménez MD [address] [place] [address] [address] [place] [address] documented as of this encounter Visit Diagnoses Not on filedocumented in this encounter Care Teams Cone Former Relationship Specialty [place] [address] [place] [phone] PCP - General Internal Medicine 01/13/23 documented as of this encounter
--- OUTSIDE RECORDS SUMMARY | 2024-12-01 20:04 | XMS_ITS | Encounter Summary ---
Author Organization [facility] Address [address] [facility] [place] [address] Care Team Providers Care Dental Prosthetist Name Role Phone Ronnie Martins MD Primary Care Provider Encounter Details Date Type Department Care Team (Late st Contact Info) Description 09/08/2024 Telephone [facility] - Endocrinology [address] [place] [address], [place] [address] Latrice Jiménez MD [address] [place] [address] Social History Tobacco Use Types Packs/Day Years Used Date Smoking Tobacco: Never Smokeless Tobacco: Never Sex and Gender Information Value Date Recorded Sex Assigned at Not on file 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 Jiménez Reason for Call: Mr. Isael Chow stated he spoke w his sleep provider at [facility] and he said Dr. Jiménez would have to refill his tirzepatide (Zepbound) 2.5 MG/0.5ML injection. He's been without for a while. His sleep doctor faxed over info 09/08/24 its under his MEDIA TAB in his [employer]. please call w any questions. Patient Call Back Number: [phone] documented in this encounter Plan of Treatment Upcoming Encounters Date Type Department Care Team (Late st Contact Info) Description 02/04/2025 10:40 AM CDT Office Visit [facility] - Endocrinology [address] [place] [address], [place] [address] Latrice Jiménez MD [address] [place] [address] [place] [address] documented as of this encounter Visit Diagnoses Not on filedocumented in this encounter Care Teams Dental Prosthetist Relationship Specialty Start Date End Date Ronnie Martins MD [address] [place], [place] [phone] PCP - General Internal Medicine 01/13/23 documented as of this encounter
--- OUTSIDE RECORDS SUMMARY | 2024-12-01 20:04 | XMS_ITS | Encounter Summary ---
Author Organization [facility] Address [address] [facility] [place] [address] Care Team Providers Care Supervisor Microbiology Technologists Name Role Phone Ronnie Martins MD Primary Care Provider Reason for Visit * Reason Onset Date Comments Update 05/13/2023 Encounter Details Date Type Department Care Team (Late Contact Info) Description 05/13/2023 Telephone [facility] - Centralized Scheduling [address] [place] [phone] Latrice Jiménez MD [address] [place] [address] Update Social History Tobacco Use Types Packs/Day Years Used Date Smoking Tobacco: Never Assessed Sex and Gender Information Value Date Recorded Sex Assigned at Not on file 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 Gender Identity Not on file Sexual Orientation Not on file documented as of this encounter Miscellaneous Notes * Telephone Encounter - Amy Evans - 05/13/2023 3:38 PM CST Patient called stating he had his Echo and labwork done today At [facility] ING FLOOR DESK CLERK documented in this encounter Plan of Treatment Upcoming Encounters Date Type Department Care Team (Late Contact Info) Description 02/04/2025 10:40 AM CDT Office Visit [facility] - Endocrinology [address] [place] [address], [place] [address] Latrice Jiménez MD [address] [facility] [address] [place] [address] documented as of this encounter Visit Diagnoses Not on filedocumented in this encounter Care Teams Supervisor Microbiology Technologists Relationship Specialty Start Date End Date Ronnie Martins MD [address] [place], [place] [phone] PCP - General Internal Medicine 01/13/23 documented as of this encounter
--- OUTSIDE RECORDS SUMMARY | 2024-12-01 20:04 | XMS_ITS | Clinical Summary ---
Author Organization [address] Address [address] [place] [phone] Care Team Providers Care Book Shelver Name Role Phone Ronnie Martins MD Primary [...] patient's age to complete this topic Insurance [facility] Care Teams Book Shelver Relationship Specialty Start Date End Date Ronnie Martins MD [address] [address] PCP - General Internal Medicine 01/02/21
--- OUTSIDE RECORDS SUMMARY | 2024-12-01 20:04 | XMS_ITS | Encounter Summary ---
Author Organization [facility] Address [address] [facility] [place] [address] Care Team Providers Care Medication Technician Name Role Phone Ronnie Martins MD Primary Care Provider Encounter Details Date Type Department Care Team (Late st Contact Info) Description 08/17/2024 Telephone [facility] - Endocrinology [address] [place] [address], [facility] [place] [address] Latrice Jiménez MD [address] [place] [address] Social History Tobacco Use Types Packs/Day Years Used Date Smoking Tobacco: Never Smokeless Tobacco: Never Sex and Gender Information Value Date Recorded Sex Assigned at Not on file 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 [facility] #[id number] [facility] [address] [address] Please advise. His girlfriend Patricia called. Patient Call Back Number: [phone] documented in this encounter Plan of Treatment Upcoming Encounters Date Type Department Care Team (Late st Contact Info) Description 02/04/2025 10:40 AM CDT Office Visit [facility] - Endocrinology [address] [place] [address], [place] [address] Latrice Jiménez MD [address] [place] [address] [place] [address] documented as of this encounter Visit Diagnoses Not on filedocumented in this encounter Care Teams Medication Technician Relationship Specialty Start Date End Date Ronnie Martins MD [address] [place], [place] [phone] PCP - General Internal Medicine 01/13/23 documented as of this encounter
--- OUTSIDE RECORDS SUMMARY | 2024-12-01 20:04 | XMS_ITS | Encounter Summary ---
Author Organization [facility] Address [address] [facility] [place] [address] Care Team Providers Care Ssds Mk 2 Advanced Operator Name Role Phone Ronnie Martins MD Primary Care Provider Encounter Details Date Type Department Care Team (Late st Contact Info) Description 05/07/2023 Telephone [facility] - Endocrinology [address] [place] [address], [facility] [place] [address] Latrice Jiménez MD [address] [place] [place] [address] Social History Tobacco Use Types Packs/Day Years Used Date Smoking Tobacco: Never Assessed Sex and Gender Information Value Date Recorded Sex Assigned at Not on file 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 Pharmacy needs Dr authorization. Patient has been taking Metformin in the mean time. [id number] - [address] [facility] [id number] [address] Patient call back number is [phone] R REELER documented in this encounter Plan of Treatment Upcoming Encounters Date Type Department Care Team (Late st Contact Info) Description 02/04/2025 10:40 AM CDT Office Visit [facility] - Endocrinology [address] [place] [address], [place] [phone] Latrice Jiménez MD [address] [place] [address] [address] [place] [phone] documented as of this encounter Visit Diagnoses Not on filedocumented in this encounter Care Teams Ssds Mk 2 Advanced Operator Relationship Specialty Start Date End Date Ronnie Martins MD [address] [place], [place] [phone] PCP - General Internal Medicine 01/13/23 documented as of this encounter
--- OUTSIDE RECORDS SUMMARY | 2024-12-01 20:04 | XMS_ITS | Clinical Summary ---
Author Organization [facility] Address [address] [place] [phone] Phone Care Team Providers Care Roller Die Cutting Machine Operator Name Role Phone Ronnie Martins MD Primary Care Provider [phone] Social History Tobacco Use Types Packs/Day Years [...] [place] [facility] OPEN ACCESS Care Teams Roller Die Cutting Machine Operator Relationship Specialty Start Date End Date Ronnie Martins MD PCP - General Internal Medicine 12/14/14
--- OUTSIDE RECORDS SUMMARY | 2024-12-01 20:04 | XMS_ITS | Encounter Summary ---
Author Organization [facility] Address [address] [facility] [place] [address] Care Team Providers Care Cable Spooler Name Role Phone Ronnie Martins MD Primary Care Provider Encounter Details Date Type Department Care Team (Late st Contact Info) Description 10/13/2024 Telephone [facility] - Endocrinology [address] [place] [address], [facility] [place] [address] Latrice Jiménez MD [address] [place] [phone] Social History Tobacco Use Types Packs/Day Years Used Date Smoking Tobacco: Never Smokeless Tobacco: Never Sex and Gender Information Value Date Recorded Sex Assigned at Not on file 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 Patient Call Back Number: [phone] documented in this encounter Plan of Treatment Upcoming Encounters Date Type Department Care Team (Late st Contact Info) Description 02/04/2025 10:40 AM CDT Office Visit [facility] - Endocrinology [address] [place] [address], [place] [address] Latrice Jiménez MD [address] [place] [address] [place] [address] documented as of this encounter Visit Diagnoses Not on filedocumented in this encounter Care Teams Cable Spooler Relationship Specialty Start Date End Date Ronnie Martins MD [address] [place], [place] [phone] PCP - General Internal Medicine 01/13/23 documented as of this encounter
--- OUTSIDE RECORDS SUMMARY | 2024-12-01 20:04 | XMS_ITS | Encounter Summary ---
Author Organization [facility] Address [address] [facility] [place] [address] Care Team Providers Care Supervisor Food Checkers And Cashiers Name Role Phone Ronnie Martins MD Primary Care Provider Encounter Details Date Type Department Care Team (Late Contact Info) Description 06/10/2023 Telephone [facility] - Centralized Scheduling [address] [place] [phone] Latriec Jiménez MD [address] [place] [address] [address] [place] [address] Social History Tobacco Use Types Packs/Day Years Used Date Smoking Tobacco: Never Assessed Sex and Gender Information Value Date Recorded Sex Assigned at Not on file Legal Sex Male 6:58 AM LEASING 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 Gender Identity Not on file Sexual Orientation Not on file documented as of this encounter Plan of Treatment Upcoming Encounters Date Type Department Care Team (Late Contact Info) Description 02/04/2025 10:40 AM CDT Office Visit [facility] - Endocrinology [address] [place] [address], [place] [phone] Latrice Jiménez MD [address] [place] [address] [address] [place] [phone] documented as of this encounter Visit Diagnoses Not on filedocumented in this encounter Care Teams Supervisor Food Checkers And Cashiers Relationship Specialty Start Date End Date Ronnie Martins MD [address] [place], [place] [phone] PCP - General Internal Medicine 01/13/23 documented as of this encounter
--- OUTSIDE RECORDS SUMMARY | 2024-12-01 20:04 | XMS_ITS | Clinical Summary ---
Author Organization [facility] Address [address] [place] [address] Care Team Providers Care K [employer] Principal Name Role Phone Ronnie Martins MD Primary Care Provider Source Comments [facility],non-owned Affiliates and Associated Physician Practices is amultiple site organization consisting of ambulatory clinics and hospital sitesin [place], [place], [place] and [place]. This disclosure is being madepursuant to the Care Everywhere program and may not contain all information available regarding this patient. Last updated 18.[facility] Allergies No known active allergies Medications * [...] long-term current use of insulin ([facility]) Use 1 Each once daily 100 Each 06/29/19 25 Active Blood Glucose Monitoring Suppl (ONE TOUCH ULTRA 2) w/Device KITIndications: Type 2 diabetes mellitus without complication, without long-term current use of insulin ([facility]) Use 1 Each as directed 1 kit 06/29/19 25 Active blood glucose (OneTouch Ultra Blue Test) test stripIndication s:Type 2 diabetes mellitus without complication, without long-term current use of insulin ([facility]) Use 1 (one) strip once daily 100 strip 06/29/19 25 Active Insulin Pen Needle 32G X 4 MM MISCIndications :Type 2 diabetes mellitus without complication, without long-term current use of insulin ([facility]),MAGGIE (obstructive sleep apnea),Class 3 severe obesity [...] 10/20/2024 Telephone [facility] - Endocrinology [address] [place] [phone] Latrice Jiménez MD Pre Authorization 10/19/2024 Telephone [facility] - Endocrinology [address] [place] [phone] Latrice Jiménez MD Question 10/13/2024 Telephone [facility] - Endocrinology [address] [place] [phone] Latrice Jiménez MD 10/08/2024 Telephone [facility] - Endocrinology [address] [place] [phone] Татьяна Dillon RN General 10/08/2024 Telephone [facility] - Endocrinology [address] [place] [phone] Latrice Jiménez MD Med Question 09/10/2024 Telephone [facility] - Centralized Scheduling [address] [place] [phone] Latrice Jiménez MD 09/08/2024 Telephone [facility] - Endocrinology [address] [place] [phone] Latrice Jiménez MD from Last 3 Months Social History Tobacco Use Types Packs/Day Years Used Date Smoking Tobacco: Never Smokeless Tobacco: Never Sex and Gender Information Value Date Recorded Sex Assigned at Not on file 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 Gender Identity Not on file Sexual Orientation Not on file Last Filed Vital Signs Vital Sign Reading Time Taken Comments Blood Pressure 123/79 06/15/2024 10:31 AM SOLAR SALES SPECIALIST Pulse 106 06/15/2024 10:31 AM SOLAR SALES SPECIALIST Temperature - - Respiratory Rate - - Oxygen Saturation 95% 06/15/2024 10:31 AM SOLAR SALES SPECIALIST Inhaled Oxygen Concentration - - Weight 150.6 kg (332 lb) 06/15/2024 10:31 AM SOLAR SALES SPECIALIST Height 185.4 cm (6' 1) 06/15/2024 10:31 AM SOLAR SALES SPECIALIST Body Mass Index 43.8 06/15/2024 10:31 AM SOLAR SALES SPECIALIST Plan of Treatment Upcoming Encounters Date Type Department Care Team (Late st Contact Info) Description 02/04/2025 10:40 AM CDT Office Visit [facility] - Endocrinology [address] [place] [phone] Latrice Jiménez MD [address] [place] [address] OF [place] [address] Health Maintenance Due Date Last Done Comments [...] CARE (AMB) [facility] Routine 06/15/2024 10:39 AM SOLAR SALES SPECIALIST Type 2 diabetes mellitus without complication, without long-term current use of insulin from Last 3 Months or Most Recently Relevant to Health Maintenance Results * HEMOGLOBIN A1C - POINT OF CARE (AMB) [facility] (06/15/2024 10:39 AM SOLAR SALES SPECIALIST) [facility] Hemoglobin A1c POCT 6.0 % [facility] [address] BLOOD SPECIMEN / Unknown 06/15/2024 10:39 AM SOLAR SALES SPECIALIST Latrice Jiménez MD LAB - POINT OF CARE ORDERABLES F inal Result [facility] [address], [facility] [address] [place] [address], [facility] [phone] from Last 3 Months or Most Recently Relevant to Health Maintenance Insurance [facility] Care Teams [employer] Principal Relationship Specialty [place] [address] [place] [phone] PCP - General Internal Medicine 01/13/23
--- OUTSIDE RECORDS SUMMARY | 2024-12-01 20:04 | XMS_ITS | Encounter Summary ---
Author Organization [facility] Address [address] [facility] [place] [address] Care Team Providers Care Boat Dock Operator Name Role Phone Ronnie Martins MD Primary Care Provider Encounter Details Date Type Department Care Team (Late st Contact Info) Description 06/30/2024 Telephone [facility] - Endocrinology [address] [place] [address], [facility] [address] Latrice Jiménez MD [address] [place] [address] [place] [address] Social History Tobacco Use Types Packs/Day Years Used Date Smoking Tobacco: Never Smokeless Tobacco: Never Sex and Gender Information Value Date Recorded Sex Assigned at Not on file Legal Sex 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 Drug type:Contour Next Gen Level 1 3847 MG/ DL Level 2 111-138 Test Strips Pharmacy:[facility] #[id number] [facility] [phone] Patient call back number: [phone] . Patients GAVIN : 06/15/2024 Upcoming appointment scheduled for : 10/26/2024 ONAL CARE HOME ADMINISTRATOR documented in this encounter Plan of Treatment Upcoming Encounters Date Type Department Care Team (Late st Contact Info) Description 02/04/2025 10:40 AM CDT Office Visit [facility] - Endocrinology [address] [place] [address], [place] [address] Latrice Jiménez MD [address] [place] [address] [place] [phone] documented as of this encounter Visit Diagnoses Not on filedocumented in this encounter Care Teams Boat Dock Operator Relationship Specialty Start Date End Date Ronnie Martins MD [address] [place], [place] [phone] PCP - General Internal Medicine 01/13/23 documented as of this encounter
== END 2024-12-01 20:13 | disposition home or self-care (01) ==
PROVIDERS: Emergency Provider Emergency Medicine; PCP Internal Medicine Infectious Disease
DX: S92.512A Displaced fracture of proximal phalanx of left lesser toe(s), initial encounter for closed fracture (principal); W22.09XA Striking against other stationary object, initial encounter
CPT/HCPCS: 73660; 99284

== ENCOUNTER 2025-03-18 08:24 | Outpatient (CLI) | payer BC, OTHER, SELFPAY ==
--- NOTE | ~2025-03-18 | US_ITS ---
Clinical history:Localized swelling EXAM:Ultrasound thyroid TECHNIQUE:Multiple static grayscale images and color Doppler images were obtained of the thyroid gland. Comparisons:Ultrasound soft tissue head and neck 12/24/2022 FINDINGS: Right thyroid lobe is enlarged and heterogeneous and measures 6.0 x 2.7 x 2.7 cm. Left thyroid lobe is enlarged and heterogeneous and measures 6.1 x 1.9 x 2.2 cm. Isthmus is enlarged and heterogeneous and measures 0.8 cm. Minimal vascular flow throughout the thyroid gland. No discrete thyroid nodules identified. IMPRESSION: 1. Thyroid gland is enlarged and heterogeneous. Reviewed, dictated and finalized at location Q.
--- OUTSIDE RECORDS SUMMARY | 2025-03-18 08:41 | XMS_ITS | Clinical Summary ---
Author Organization [address] Address [address] [place] [phone] Care Team Providers Care Membership Coordinator Name Role Phone Ronnie Martins MD Primary Care Provider Allergies No known active allergies Medications albuterol HFA (PROVENTIL HFA,VENTOLIN HFA,PROAIR HFA) 90 mcg/actuation inhaler albuterol sulfate HFA 90 mcg/actuation aerosol inhaler Active pravastatin (PRAVACHOL) 40 mg tablet Take 40 mg by mouth daily Active Active Problems Problem Noted Date Diagnosed Date Hyperlipidemia 01/14/2025 Gastroesophageal reflux disease 01/14/2025 Gout 01/14/2025 Obstructive sleep apnea 01/14/2025 Metabolic dysfunction-associ ated steatotic liver disease (MASLD) 01/14/2025 Type 2 diabetes mellitus without complication Medical History Medical History Date Comments Hyperlipidemia [...] Plan of Treatment Not on file Insurance [facility] Care Teams Membership Coordinator Relationship Specialty Start Date End Date Ronnie Martins MD [address] [place] [address] PCP - General Internal Medicine 01/02/21
--- OUTSIDE RECORDS SUMMARY | 2025-03-18 08:41 | XMS_ITS | Data Portability ---
Author Organization KIMBERLEY JACINTOArmin Yee Address [address] [facility] [place] [address] Care Team Providers Care Machine Engraver Name Role Phone RONNIE GERMAN Primary Care Provider Assessment Encounter Date Assessment Date Assessment LastModified by Organization Details LastModified Time 09/08/2023 09/08/2023 He is rather paranoid and may be a hypochondriac oajao Not available 09/08/2023 11:58:01 Plan of Treatment Reminders Order Date Submit Date Provider Last Modified By Organization Details Last Modified Time Details Appointments None recorded. Lab lipid panel, serum [address] [facility] Orders, [address] [place], [address], 5 08:26:57 hemoglobi n A1C/hemog lobin total, QN, blood [address] [facility] On [facility] Orders, [address] [place], [address], 5 08:26:[address] [facility] On [facility] Orders, [address] [place], [address], 5 08:27:11 uric acid, serum or plasma 2023 024 [facility] Add On Lab Orders, [address] [place], [address], 5 16:02:01 CBC w/ auto diff 2023 024 [facility] Add On Lab Orders, [address] [place], [address], 5 15:40:09 erythropo ietin, serum 2023 024 [facility] Add On Lab Orders, [address] [place], [address], 5 16:02:01 HbA1c (hemoglob in A1c), blood 2023 024 [facility] Add On Lab Orders, [address] [place], [address], 4 02:49:29 lipid panel, serum 2023 024 [facility] Add On Lab Orders, [address] [place], [address], 4 02:49:29 vitamin B12, serum 2023 024 [facility] Add On Lab Orders, [address] [place], [address], 4 02:49:30 TSH, ultra-sen sitive, serum 2023 024 [facility] Add On Lab Orders, [address] [place], [address], 4 02:49:30 CMP, serum or plasma 2023 024 [facility] Add On Lab Orders, [address] [place], [address], 4 02:49:30 CBC w/ auto diff 2023 024 [facility] Add On Lab Orders, [address] [place], [address], 4 02:49:29 uric acid, serum or plasma 04/22/ 2024 05/06/2 024 [facility] Add On Lab Orders, [address] [place], [address], 4 09:04:41 BMP, serum or plasma 2023 024 [facility] Add On Lab Orders, [address] [place], [address], 4 09:04:41 RPR (rapid plasma reagin), serum 2023 024 [facility] Add On Lab Orders, [address] [place], [address], 4 11:49:54 CT + NG RNA, PCR, unspecifi ed specimen 2023 024 [facility] Add On Lab Orders, [address] [place], [address], 4 11:49:54 HIV 1 + 2, meaningfu l use set 2023 024 [facility] Add On Lab Orders, [address] [place], [address], 4 11:49:54 HbA1c (hemoglob in A1c), blood 2023 024 [facility], [address] [place], [address], 4 15:53:52 lipid panel, serum 2023 024 [facility] Add On Lab Orders, [address] [place], [address], 4 09:04:41 Referral sleep medicine referral 2023 024 doris Rene MD, [address] [place], [address], 5 14:04:29 diabetic ophthalmo logy referral 2023 024 WALLACE Morro Suarez OD, [address], [place], [address], 5 10:07:14 endocrino logy referral 2023 024 doris Jiménez MD, [address] [facility] [address], [place], [address], 14:04:29 psychiatr ist referral 2023 024 oamaria luisao Not available 13:51:52 diabetic ophthalmo logy referral 2023 024 rocío Corbin MD, [address], [place], [address], 12:04:47 physical therapist referral 2023 024 [facility], [address] [facility], [place], [address], 17:34:42 Procedures None recorded. Surgeries None recorded. Imaging US, thyroid - Reported throat swelling [address], [address] [place] [address] [address], [place], [address], 09:49:33 Medication Orders omeprazol e 40 mg capsule,d elayed release 2024 025 [id number], [address], [place], [place], [id number], 5 16:47:28 Tylenol Arthritis Pain 650 mg tablet,ex tended release [address] [facility] #[id number], [address], [place], [place], [id number], 5 16:47:27 Trulicity 1.5 mg/0.5 mL subcutane ous pen injector 2023 025 [facility] #80550, [address], [place], [place], [id number], 5 16:38:06 olmesarta n 20 mg tablet [address] [facility] #02938, [address], [place], [place], [id number], 5 09:18:15 hydrochlo rothiazid e 25 mg tablet 2023 024 [facility] #97421, [address] , [place], [place], [id number], 4 13:27:27 Kenalog 40 mg/mL suspensio n for injection 2023 024 oajao Not available 4 12:05:47 Medrol (Wilfrid) 4 mg tablets in a dose pack [address] [facility] #02206, [address] , [place], [place], [id number], 4 12:06:10 ibuprofen 600 mg tablet [address] [facility] #35364, [address] , [place], [place], [id number], 4 12:06:00 Patient TargetsNo targets recorded. Patient Instructions Encounter Date Encounter Id Patient Instructions Last Modified By Organization Details Last Modified Time 09/03/2023 [id number] plantar fasciiti s: care instructions fharry Not available 09/03/2023 17:03:14 plantar fasciiti s: exercises fharry Not available 09/03/2023 17:03:14 toenail fungus: care instructions fharry Not available 09/03/2023 17:03:14 09/08/2023 [id number] body mass index: care instructions oajao Not available 09/08/2023 12:22:48 learning about healthy weight oajao Not available 09/08/2023 12:22:48 anxiety disorder : care instructions oajao Not available 09/08/2023 12:11:42 learning about anxiety disorders oajao Not available 09/08/2023 12:11:42 Psych Ophthalmology Labs in 2 weeks Follow up in 4 weeks oajao Not available 09/08/2023 12:25:12 01/28/2024 [id number] influenza (flu) vaccine: care instructions oajao Not available 01/28/2024 15:13:28 snoring: care instructions oajao Not available 01/28/2024 15:26:28 type 2 diabetes: care instructions oajao Not available 01/28/2024 15:31:12 fatigue: care instructions oajao Not available 01/28/2024 15:26:48 Stop smoking GI as previously referred Labs Sleep medicine Ophthalmology Endocrinology Follow up in 3 months oajao Not available 01/28/2024 15:34:08 04/20/2024 [id number] A healthy lifestyle: care instructions oajao Not available 04/20/2024 16:31:49 Labs GI, Ophthalmology as referred Increase Trulicity to 1.5 mg weekly ER with rectal bleeding Follow up in 5 weeks oajao Not available 04/20/2024 16:46:43 10/13/2024 [id number] sleep apnea: car e instructions oajao Not available 10/13/2024 16:47:27 learning about type 2 diabetes oajao Not available 10/13/2024 16:47:27 type 2 diabetes: care instructions oajao Not available 10/13/2024 16:47:27 rectal bleeding: care instructions oajao Not available 10/13/2024 16:47:27 Labs US Follow u p to discuss the skin lesion Addendum Foot exam on his next visit oajao Not available 10/13/2024 18:33:20 Reason for Referral Physical Therapist Referral for Metatarsalgia of left foot Referring Physician: Zheng Muñoz Podiatry, Encounter Date: 09/03/2023 Diabetic Ophthalmology Refer ral for Type 2 diabetes mellitus without complication Referring Physician: Ronnie German, Internal Medicine, Encounter Date: 09/08/2023 Psychiatrist Referral for An xiety disorder Referring Physician: Ronnie German Internal Medicine, Encounter Date: 09/08/2023 Sleep Medicine Referral for Snoring Suches score 9, snorer Referring Physician: Ronnie German Internal Medicine, Encounter Date: 01/28/2024 Diabetic Ophthalmology Refer ral for Type 2 diabetes mellitus without complication Referring Physician: Ronnie German Internal Medicine, Encounter Date: 01/28/2024 Endocrinology Referral for T ype 2 diabetes mellitus without complication Follow up DM Referring Physician: Ronnie German Internal Medicine, Encounter Date: 01/28/2024 Results Created Date Observation Date Name Description Value Unit Range Abnormal Flag Note LastModifiedBy Organization Detail LastModifiedTime 06/15/19 25 06/15/2024 Hemog lobin A1c/H emogl obin. total in Blood hemoglobin A1C/hemoglob in.total in blood 6 % Hemog lobin A1c POCT 6.0 % [facility] [address] Not Available Not Available 06/29/2024 16:02:12 10/30/19 25 10/29/2024 Urina lysis compl ete W Refle x Cultu re panel - Urine color of urine by auto Color of urine normal Not Available Not Available 15:29:27 10/30/19 25 10/29/2024 Urina lysis compl ete W Refle x Cultu re panel - Urine appearance of urine Urine specim en normal Not Available Not Available 15:29:27 10/30/19 25 10/29/2024 Urina lysis compl ete W Refle x Cultu re panel - Urine specific gravity of urine by test strip 1.031 1 low: 1.001h igh: 1.03 high Not Available Not Available 10/29/2024 15:29:27 10/30/19 25 10/29/2024 Urina lysis compl ete W Refle x Cultu re panel - Urine pH of urine by test strip 5.5 pH_un its low: 5pH unitsh igh: 9pH units normal Not Available Not Available 10/29/2024 15:29:27 10/30/19 25 10/29/2024 Urina lysis compl ete W Refle x Cultu re panel - Urine leukocytes [#/volume] in urine by test strip Leukoc yte estera se measur ement text: negati ve normal Not Available Not Available 10/29/2024 15:29:27 10/30/19 25 10/29/2024 Urina lysis compl ete W Refle x Cultu re panel - Urine nitrite [presence] in urine by test strip Labora tory test findin g text: negati ve normal Not Available Not Available 10/29/2024 15:29:27 10/30/19 25 10/29/2024 Urina lysis compl ete W Refle x Cultu re panel - Urine protein [mass/volume ] in urine by test strip 10 mg/dL text: negati ve Not Available Not Available 10/29/2024 15:29:27 10/30/19 25 10/29/2024 Urina lysis compl ete W Refle x Cultu re panel - Urine glucose [moles/volum e] in urine by test strip Labora tory test findin g text: normal normal Not Available Not Available 10/29/2024 15:29:27 10/30/19 25 10/29/2024 Urina lysis compl ete W Refle x Cultu re panel - Urine ketones [moles/volum e] in urine by test strip Labora tory test findin g text: negati ve normal Not Available Not Available 10/29/2024 15:29:27 10/30/19 25 10/29/2024 Urina lysis compl ete W Refle x Cultu re panel - Urine urobilinogen [mass/volume ] in urine by test strip Urobil inogen measur ement, urine text: normal normal Not Available Not Available 10/29/2024 15:29:27 10/30/19 25 10/29/2024 Urina lysis compl ete W Refle x Cultu re panel - Urine bilirubin.to travis [mass/volume ] in urine by test strip Urine dipsti ck for biliru bin text: negati ve normal Not Available Not Available 10/29/2024 15:29:27 10/30/19 25 10/29/2024 Urina lysis compl ete W Refle x Cultu re panel - Urine erythrocytes [#/volume] in urine by test strip Urine dipsti ck for blood text: negati ve normal Not Available Not Available 10/29/2024 15:29:27 10/30/19 25 10/29/2024 Urina lysis compl ete W Refle x Cultu re panel - Urine leukocytes [#/area] in urine sediment by automated count Leukoc ytes in urine low: 0/[hpf ]high: 8/[hpf ] normal Not Available Not Available 10/29/2024 15:29:27 10/30/19 25 10/29/2024 Urina lysis compl ete W Refle x Cultu re panel - Urine erythrocytes [#/area] in urine sediment by automated count Blood in urine low: 0/[hpf ]high: 4/[hpf ] normal Not Available Not Available 10/29/2024 15:29:27 10/30/19 25 10/29/2024 Urina lysis compl ete W Refle x Cultu re panel - Urine bacteria [presence] in urine by automated Urine findin g text: none seen Not Available Not Available 10/29/2024 15:29:27 10/30/19 25 10/29/2024 Urina lysis compl ete W Refle x Cultu re panel - Urine mucus [#/area] in urine sediment by automated count Urine findin g text: none seen Not Available Not Available 10/29/2024 15:29:27 10/30/19 25 10/29/2024 Urina lysis compl ete W Refle x Cultu re panel - Urine epithelial cells.squamo us [#/area] in urine sediment by automated count Urine findin g Not Available Not Available 15:29:27 10/30/19 25 10/29/2024 Urina lysis compl ete W Refle x Cultu re panel - Urine crystals [#/area] in urine sediment by automated count Urine findin g text: none seen Not Available Not Available 10/29/2024 15:29:27 12/21/19 25 12/20/2024 strep tococ cus group A Ag scree n specimen source identified (obs) THROAT Not Available Not Available 01/18 12:39:01 12/21/19 25 12/20/2024 strep tococ cus group A Ag scree n streptococcu s group A Ag screen NEGATI VE text: negati ve Not Available Not Available 02/10/2025 12:39:01 12/02/19 25 12/01/2024 XR, foot No observ ation record ed. [facility] [address], [place], [address], 12/02/2024 09:05:19 Result Notes None recorded. Problems Name Problem SNOMED Code Status Onset Date Resolution Date Notes Provider Name and Address Organization Details Recorded Time Gastroesop hageal reflux disease 022697153 Active Not Available [facility] 3 01:31:18 Fingernail injury 010899524 Active Not Available [facility] 3 01:31:18 Acute bronchitis 70416226 Active Not Available [facility] 3 01:31:18 Tinea cruris 066721829 Active [facility] Available [facility] 01:31:18 Dental caries 98814167 Active Not Available [facility] 3 01:31:18 Panic disorder 546084995 Active Not Available [facility] 3 01:31:18 Hyperlipid emia 90869351 Active Ronnie German MD Attn: [place], [address] , [facility] 4 16:31:25 Sexually transmitte d infectious disease 0765356 Active Not Available [facility] 3 01:31:18 Folliculit is 95915938 Active Not Available [facility] 3 01:31:18 Harmful pattern of use of Cannabis 11545151 Active Not Available [facility] 3 01:31:18 Sebaceous cyst of scrotum 59208388 Active Not Available [facility] 3 01:31:18 Pain in testicle 65094971 Active Not Available [facility] 3 01:31:18 Obesity 782312616 Active Not Available [facility] 3 01:31:18 Abscess 648668729 Active Not Available [facility] 3 01:31:18 Impaired fasting glycemia 016835058 Active 2018 Not Available [facility] 3 01:31:18 Gout 21881248 Active 2019 Not Available [facility] 3 01:31:18 Erythrocyt osis 795685816 Active 2020 Not Available [facility] 3 01:31:18 SARS-CoV-2 antigen vaccine declined 0164981675 Active 2021 Not Available [facility] 3 01:31:18 Elevated blood-pres sure reading without diagnosis of hypertensi on 780346062 Active 2021 Not Available [facility] 3 01:31:18 Varicocele 80649577 Active 2021 Not Available [facility] 3 01:31:18 Type 2 diabetes mellitus without complicati on 319917689 Active 2021 Ronnie German MD Attn: [place], [address] , [facility] 4 16:31:31 Snoring 29857601 Active 2022 Not Available [facility] 3 01:31:18 Statin not tolerated 496419997 Active 2022 Not Available [facility] 3 01:31:18 Myalgia caused by statin 6003711055324 9106 Active 2022 Not Available [facility] 3 01:31:18 Goiter 7152590 Active 2022 Not Available [facility] 3 01:31:18 Diastasis recti 81206422 Active 2022 Not Available [facility] 3 01:31:18 Obstructiv e sleep apnea syndrome 01953122 Active 2024 Ronnie German MD Attn: Accounting ,[address] [facility], [place], [address] , [place] - [facility] 5 18:30:57 Problem Notes Documentation Provider Name and Address Organization Details Recorded Time Endocrinology Consult Note : This document (1 of 1) was received from [email or web address] [email or web address] on 10/28/2024 through Direct Message along with the following message body content: Patient Name: ISAEL CHOW. Patient : 1985. Patient . Senia [place], [place] - [facility] 10/29/2024 11:39:27 Procedures Surgical History Date Name Laterality Status Provider Name and Address Organization Details Recorded Time 4 Diabetic Foot Exam completed Ronnie German MD Attn: Accounting,[address] [facility], [place], [address], [place] [facility] 09/08/2023 12:22:20 4 Dermatology Excision completed ZHENG MUÑOZ DPM [address], [place], [address], [place] [facility] 09/03/2023 17:00:54 4 Injection completed ZHENG MUÑOZ DPM [address], [place], [address], [place] [facility] 09/03/2023 16:59:11 4 Nail Debridement completed ZHENG MUÑOZ DPM [address], [place], [address], [place] [facility] 07/21/2023 11:36:35 4 Injection completed ZHENG MUÑOZ DPM [address], [place], [address], [place] [facility] 07/21/2023 11:57:52 3 Nail Debridement completed ZHENG MUÑOZ DPM [address], [place], [address], [place] [facility] 03/07/2023 11:58:06 3 Nail Debridement completed ZHENG BOBBY, DPM [address], [place], [address], [place] [facility] 01/01/2023 12:26:53 3 Nail Debridement completed ZHENG BOBBY, DPM [address], [place], [address], [place] [facility] 11/01/2022 17:19:01 3 Ulcer Debridement completed ZHENG MUÑOZ, DPM [address], [place], [address], [place] [facility] 09/29/2022 15:09:59 3 Toenail avulsion completed ZHENG MUÑOZ, DPM [address], [place], [address], [place] [facility] 09/29/2022 15:08:26 3 Routine Foot Care completed ZHENG MUÑOZ, DPM [address], [place], [address], [place] [facility] 09/12/2022 14:27:07 3 Toenail avulsion completed ZHENG MUÑOZ, DPM [address], [place], [address], [place] [facility] 09/12/2022 14:22:24 3 Routine Foot Care completed ZHENG MUÑOZ, DPM [address], [place], [address], [place] [facility] 06/10/2022 12:36:46 Imaging Results None recorded. Procedure Notes None recorded. Medical Equipment None Reported. Allergies Allergen ID Allergen Name Allergen Category Reaction Reaction Severity Criticality Documentation Date Start Date Code Code System Note Provider Name and Address Organization Details Recorded Time 841816 No known allergy (situatio n) Not available Not available Not available Not available 12/26/2021 [id number] SNDANY German MD Attn: Christina garcia,[address] [facility], [place], [address], [place] [facility] 2 17:54:12 No known drug allergies Medications Name Sig Start Date Stop Date Status Note LastModified by Organization Details LastModified Time cyclobenz aprine 10 mg tablet 05/16 completed Not Available Not Available Not Available amoxicill in 500 mg capsule TAKE 1 CAPSULE BY MOUTH EVERY 8 HOURS FOR 10 DAYS 12/26 completed Not Available Not Available Not Available metformin 500 mg tablet TAKE 1 TABLET BY MOUTH TWICE DAILY 03/27 completed Not Available Not Available Not Available nystatin 100,000 unit/mL oral suspensio n TAKE 10 MILLILIT ERS BY MOUTH 2 TIMES A DAY 12/06 completed Not Available Not Available Not Available acetamino phen 325 mg tablet 02/21 completed Not Available Not Available Not Available doxycycli ne hyclate 100 mg capsule Take 1 capsule twice a day by oral route for 10 days. 03/27 completed Not Available Not Available Not Available nicotine 14 mg/24 hr daily transderm al patch Apply 1 patch every day by transder mal route around the clock for 14 days. 12/06 completed Not Available Not Available Not Available ammonium lactate 12 % lotion Apply 1 applicat ion twice a day by topical route. 12/06 completed Not Available Not Available Not Available azithromy aime 250 mg tablet TAKE 2 TABLETS (500 MG) BY ORAL ROUTE ONCE DAILY FOR 1 DAY THEN 1 TABLET (250 MG) BY ORAL ROUTE ONCE DAILY FOR 4 DAYS 09/06 completed Not Available Not Available Not Available pravastat in 40 mg tablet TAKE 1 TABLET BY MOUTH EVERY NIGHT AT BEDTIME active Stop Pravasta tinStart Rosuvast atin Not Available Not Available Not Available ibuprofen 800 mg tablet TAKE 1 TABLET BY MOUTH 2 TIMES A DAY FOR 10 DAYS 03/27 completed Not Available Not Available Not Available hydrocodo ne 5 mg-acetam inophen 325 mg tablet TAKE 1 TABLET BY MOUTH EVERY 6 HOURS NEEDED 12/26 completed Not Available Not Available Not Available naltrexon e 50 mg tablet Take 0.5 tablets twice a day by oral route around the clock for 30 days. 09/09 completed Not Available Not Available Not Available prednison e 20 mg tablet 07/27 completed Not Available Not Available Not Available ceftriaxo ne 250 mg solution for injection Take 250 mg every day by injectio n route as directed for 1 day. 03/27 completed Not Available Not Available Not Available simvastat in 10 mg tablet Take 1 tablet every day by oral route for 90 days. 10/24 completed Not Available Not Available Not Available Debrox 6.5 % ear drops INSTILL 5 DROPS INTO the right eAR(S) BY OTIC ROUTE 2 TIMES PER DAY for 4 days 01/27 completed Not Available Not Available Not Available Tylenol Arthritis Pain 650 mg tablet,ex tended release Take 2 tablets every 8 hours by oral route as needed for 7 days, for Pain. 2024 active Not Available Not Available Not Avai lable penicilli n V potassium 500 mg tablet 03/27 completed Not Available Not Available Not Available metronida zole 500 mg tablet Take 4 tablets every day by oral route as directed for 1 day. 03/16 completed Not Available Not Available Not Available acetamino phen 300 mg-codein e 30 mg tablet 03/27 completed Not Available Not Available Not Available allopurin ol 100 mg tablet Take 1 tablet every day by oral route as directed for 30 days. 05/16 completed Not Available Not Available Not Available omeprazol e 40 mg capsule,d elayed release Take 1 capsule every day by oral route around the clock for 30 days. 2024 active Not Available Not Available Not Avai lable tramadol 50 mg tablet 03/27 completed Not Available Not Available Not Available amoxicill in 500 mg tablet TAKE 1 TABLET BY MOUTH 3 TIMES A DAY FOR 10 DAYS 03/27 completed Not Available Not Available Not Available fenofibra te micronize d 134 mg capsule 10/24 completed Not Available Not Available Not Available Kenalog 40 mg/mL suspensio n for injection Take 0.25 mL by injectio n route. 09/07 completed Not Available Not Available Not Available ofloxacin 0.3 % ear drops INSTILL 10 DROPS (1.5 MG) INTO AFFECTED EAR(S) BY OTIC ROUTE 2 TIMES PER DAY for 10 days 08/28 completed Not Available Not Available Not Available benzonata te 100 mg capsule 09/06 completed Not Available Not Available Not Available doxycycli ne monohydra te 100 mg capsule TAKE 1 CAPSULE BY MOUTH TWICE DAILY 02/16 completed Not Available Not Available Not Available ranitidin e 150 mg tablet Take 1 tablet twice a day by oral route for 90 days. 10/24 completed Not Available Not Available Not Available polymyxin B sulfate 10,000 unit-trim ethoprim 1 mg/mL eye drops INSTILL 1 DROP RIGHT EYE EVERY 3 HOURS WHILE AWAKE 12/06 completed Not Available Not Available Not Available losartan 25 mg tablet Take 1 tablet every day by oral route as directed for 90 days, for HTN/Anita l protecti on. active Not Available Not Available No t Available indometha aime 50 mg capsule Take 1 capsule 3 times a day by oral route as directed for 5 days. 05/16 completed Not Available Not Available Not Available nicotine 21 mg/24 hr daily transderm al patch Apply 1 patch every day by transder mal route as directed . 12/06 completed Not Available Not Available Not Available hydroxyzi ne HCl 25 mg tablet Take 1 tablet 3 times a day by oral route as directed for 14 days, for Anxiety. 2024 active Not Available Not Available Not Avai lable allopurin ol 300 mg tablet TAKE 1 TABLET BY MOUTH EVERY DAY 2024 active Not Available Not Available Not Avai lable hydrochlo rothiazid e 25 mg tablet One PO daily active Not Available Not Available No t Available ibuprofen 600 mg tablet Take 1 tablet 3 times a day by oral route with meals for 30 days. 09/07 completed Not Available Not Available Not Available levofloxa aime 750 mg tablet Take 1 tablet every day by oral route as directed for 5 days. 08/28 completed Not Available Not Available Not Available methylpre dnisolone 4 mg tablets in a dose pack Take 1 dose pk by oral route. 09/07 completed Not Available Not Available Not Available albuterol sulfate HFA 90 mcg/actua tion aerosol inhaler 2 puffs Q 6 hours PRN with SOB active Not Available Not Available No t Available colchicin e 0.6 mg tablet 04/27 completed Not Available Not Available Not Available pseudoeph edrine 60 mg tablet Take 1 tablet every 6 hours by oral route as needed for 5 days. 01/27 completed Not Available Not Available Not Available clotrimaz ole 1 % topical cream APPLY TO AFFECTED AREA EVERY 12 HOURS 12/26 completed Not Available Not Available Not Available doxycycli ne hyclate 100 mg tablet Take 1 tablet twice a day by oral route for 10 days. 03/27 completed Not Available Not Available Not Available naproxen 500 mg tablet 05/16 completed Not Available Not Available Not Available amoxicill in 875 mg-potass ium clavulana te 125 mg tablet Take 1 tablet every 12 hours by oral route as directed for 5 days. 12/26 completed Not Available Not Available Not Available nicotine 7 mg/24 hr daily transderm al patch Apply 1 patch every day by transder mal route for 14 days. 12/06 completed Not Available Not Available Not Available Bactrim DS 800 mg-160 mg tablet Take 1 tablet every 12 hours by oral route for 7 days. 10/24 completed Not Available Not Available Not Available olmesarta n 20 mg tablet TAKE 1 TABLET BY MOUTH EVERY DAY DIRECTED FOR HYPERTEN RUBEN 05/21 completed The PA for Olmesart an was denied.C hanged to Losartan on 05/21/2024 Not Available Not Available Not Available ezetimibe 10 mg tablet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 annually patient encouraged to establish care with PCP for diabetes, high cholestero l, and weight loss management . Indigestion [id number] K3 0 1 .Avoid lying flat 3 to 4 hours after eating or drinking. 2. Don't eat for 3 hours prior to going to sleep 3. Elevate the head of bed 4-8 inches. 4. Avoid tight clothing around the waist. 5. Decrease dietary fat intake. 6. Avoid acidic foods (citrus and tomato-bas ed products), alcohol, caffeinate d beverages, chocolate, onions, garlic, salt, and peppermint oil. 7. Eat several smaller meals during the day instead of large meals. 8. Avoid drinking coffee, or carbonated beverages. 9. Weight loss can help with symptoms, try to diet and exercise. 10. Stop smoking. [id number] ZHENG MUÑOZ DPM [facility] [place] [address] 09/05/2022 12:52:44 09/13/2022 08:17:45 Diabetic peripheral neuropathy 478789892 E11.42 Patient was educated about the systemic risks of diabetes and importance of proper glucose control, dangers of neuropathy and loss of gift of pain and risk stratifica tion and exam frequency. Patient was educated on high pressure areas including risks and offloading solutions. Reviewed with patient proper foot care instructio ns and daily self-exami nation and monitoring of the feet. Onychomycosis 302841124 B35.1 [place] - lesion 924552259 L84 Xerosis du e to atopic dermatitis 543970047 L85.3 The patient was educated regarding proper hydration of their feet/ankle s and the patient was given several recommenda tions for proper creams to protect/hy drate and keep the area healthy. Anhidrosis 60543571 L74. 4 The patient was educated regarding proper hydration of their feet/ankle s and the patient was given several recommenda tions for proper creams to protect/hy drate and keep the area healthy. Acquired h ammer toe of left foot [id number] 683560 M20.42 The patient was educated regarding how to mechanical ly stabilize their deformity. The patient was given education about shoe recommenda tions specific for the condition. The patient was educated about custom orthotics and how appropriat e shoes and orthotics can prevent further worsening of the deformity. The patient was educated about how bad shoe habits can worsen the condition. NSAIDS, P.T., injections and other conservati ve treatments were discussed. Both surgical and non surgical treatments were discussed, but conservati ve options were emphasized . Acquired h ammer toe of right foot [id number] 766681 M20.41 The patient was educated regarding how to mechanical ly stabilize their deformity. The patient was given education about shoe recommenda tions specific for the condition. The patient was educated about custom orthotics and how appropriat e shoes and orthotics can prevent further worsening of the deformity. The patient was educated about how bad shoe habits can worsen the condition. NSAIDS, P.T., injections and other conservati ve treatments were discussed. Both surgical and non surgical treatments were discussed, but conservati ve options were emphasized . Ingrowing nail 752910669 L60.0 Cellulitis of toe of left foot 3233574789 8642013 L03.032 The area of erythema was evaluated and it should be noted that antibiotic s were discussed and a close evaluation was performed to assess the need for oral antibiotic s. Due to the non-ascend ing nature and local presentati on of the erythema no antibiotic s were ordered at this time. Pain in left foot 114901 0628 00462 M79.672 Pain in right foot 46911 16212 49591 M79.115 [id number] Ronnie German MD [facility] (Adult Med) [address] [place] [address] 09/06/2022 16:22:07 09/09/2022 15:11:06 Gout 77668640 M10.9 7.5Recheck U.A. after restarting Allopurino l. Type 2 davey betes mellitus without complication 007773464 E11.9 Discussed, his HBA1C is 6.6%He has restarted his Metformin and he is waiting to get in to see the endocrinol ogist. Elevated blood-pressure reading without diagnosis of hypertension 007434395 R03.0 Monitor closely Smoker 38911095 F17.200 Snoring 01618535 R06.83 Fatigue 62810053 R53.83 Myalgia ca used by statin 8154146550 7628618 M79.10 Statin not tolerated 413 127919 Z78.9 [id number] ZHENG MUÑOZ DPM [facility] [address] [place] [address] 09/23/2022 16:24:34 10/01/2022 09:40:43 Ulcer of foot 11795504 L97.522 Diabetic foot ulcer 3710 90587 E13.621 Diabetic p eripheral neuropathy 335256550 E11.42 Patient was educated about the systemic risks of diabetes and importance of proper glucose control, dangers of neuropathy and loss of gift of pain and risk stratifica tion and exam frequency. Patient was educated on high pressure areas including risks and offloading solutions. Reviewed with patient proper foot care instructio ns and daily self-exami nation and monitoring of the feet. Onychomycosis 159379611 B35.1 [place] - lesion 298083355 L84 Xerosis du e to atopic dermatitis 944947441 L85.3 The patient was educated regarding proper hydration of their feet/ankle s and the patient was given several recommenda tions for proper creams to protect/hy drate and keep the area healthy. Anhidrosis 29040703 L74. 4 The patient was educated regarding proper hydration of their feet/ankle s and the patient was given several recommenda tions for proper creams to protect/hy drate and keep the area healthy. Acquired h ammer toe of left foot 5636539220 015124 M20.42 M20.41 The patient was educated regarding how to mechanical ly stabilize their deformity. The patient was given education about shoe recommenda tions specific for the condition. The patient was educated about custom orthotics and how appropriat e shoes and orthotics can prevent further worsening of the deformity. The patient was educated about how bad shoe habits can worsen the condition. NSAIDS, P.T., injections and other conservati ve treatments were discussed. Both surgical and non surgical treatments were discussed, but conservati ve options were emphasized . Ingrowing nail 728560456 L60.0 Cellulitis of toe of left foot 9143011997 3613110 L03.031 The area of erythema was evaluated and it should be noted that antibiotic s were discussed and a close evaluation was performed to assess the need for oral antibiotic s. Due to the non-ascend ing nature and local presentati on of the erythema no antibiotic s were ordered at this time. Pain in left foot 392867 6896 27959 M79.672 Pain in right foot 36595 16668 03531 M79.032 [id number] ZHENG MUÑOZ DPM [facility] [address] [place] [address] 11/01/2022 16:36:27 11/05/2022 10:18:32 Diabetic peripheral neuropathy 427933627 E11.42 Patient was educated about the systemic risks of diabetes and importance of proper glucose control, dangers of neuropathy and loss of gift of pain and risk stratifica tion and exam frequency. Patient was educated on high pressure areas including risks and offloading solutions. Reviewed with patient proper foot care instructio ns and daily self-exami nation and monitoring of the feet. Onychomycosis 932522985 B35.1 [place] - lesion 018278469 L84 Xerosis du e to atopic dermatitis 670057310 L85.3 The patient was educated regarding proper hydration of their feet/ankle s and the patient was given several recommenda tions for proper creams to protect/hy drate and keep the area healthy.-c ontinue ammonium lactate 12% lotion bid Anhidrosis 01669074 L74. 4 The patient was educated regarding proper hydration of their feet/ankle s and the patient was given several recommenda tions for proper creams to protect/hy drate and keep the area healthy. Acquired h ammer toe of left foot 5437180903 628590 M20.42 M20.41 The patient was educated regarding how to mechanical ly stabilize their deformity. The patient was given education about shoe recommenda tions specific for the condition. The patient was educated about custom orthotics and how appropriat e shoes and orthotics can prevent further worsening of the deformity. The patient was educated about how bad shoe habits can worsen the condition. NSAIDS, P.T., injections and other conservati ve treatments were discussed. Both surgical and non surgical treatments were discussed, but conservati ve options were emphasized . Pain in left foot 805070 0419 64462 M79.672 Pain in right foot 87798 54413 72744 M79.402 [id number] Ronnie German MD [facility] (Adult Med) [address] [place] [address] 12/06/2022 10:18:30 12/09/2022 13:46:14 Benign hypertension 25784829 I10 Uncontroll ed, start Losartan Feeling of lump in throat 789842930 F45.8 There is considerab le amount of adipose tissue in his neck, and I am unable to palpate any abnormalit y. Generalize d anxiety disorder 78979290 F41.1 Neck swelling 024227686 R22.1 Type 2 davey betes mellitus without complication 963257614 E11.9 HBA1C 5.8% OV 09/06/2022 iscussed, his HBA1C is 6.6%He has restarted his Metformin and he is waiting to get in to see the endocrinol ogist. [id number] ZHENG MUÑOZ DPM [facility] [address] [address] 01/01/2023 12:03:50 01/02/2023 10:06:24 Diabetic peripheral neuropathy 750793392 E11.42 Patient was educated about the systemic risks of diabetes and importance of proper glucose control, dangers of neuropathy and loss of gift of pain and risk stratifica tion and exam frequency. Patient was educated on high pressure areas including risks and offloading solutions. Reviewed with patient proper foot care instructio ns and daily self-exami nation and monitoring of the feet. Onychomycosis 543244373 B35.1 [place] - lesion 824128148 L84 Xerosis du e to atopic dermatitis 093368192 L85.3 The patient was educated regarding proper hydration of their feet/ankle s and the patient was given several recommenda tions for proper creams to protect/hy drate and keep the area healthy.-c ontinue ammonium lactate 12% lotion bid Anhidrosis 19171956 L74. 4 The patient was educated regarding proper hydration of their feet/ankle s and the patient was given several recommenda tions for proper creams to protect/hy drate and keep the area healthy. Acquired h ammer toe of left foot 7918489083 168491 M20.42 M20.41 The patient was educated regarding how to mechanical ly stabilize their deformity. The patient was given education about shoe recommenda tions specific for the condition. The patient was educated about custom orthotics and how appropriat e shoes and orthotics can prevent further worsening of the deformity. The patient was educated about how bad shoe habits can worsen the condition. NSAIDS, P.T., injections and other conservati ve treatments were discussed. Both surgical and non surgical treatments were discussed, but conservati ve options were emphasized . Pain in left foot 515636 7594 31289 M79.672 Pain in right foot 13708 94098 89580 M79.671 Metatarsal oumou of left foot 2985713362 89085 M77.42 M77.41 The patient was educated regarding how to mechanical ly stabilize their deformity. The patient was given education about shoe recommenda tions specific for the condition. The patient was educated about custom orthotics and how appropriat e shoes and orthotics can prevent further worsening of the deformity. The patient was educated about how bad shoe habits can worsen the condition. NSAIDS, P.T., injections and other conservati ve treatments were discussed. Both surgical and non surgical treatments were discussed, but conservati ve options were emphasized . [id number] ZHENG MUÑOZ DPM [facility] [place] [address] 01/22/2023 11:51:18 01/31/2023 09:33:58 Diabetic peripheral neuropathy 842926939 E11.42 Patient was educated about the systemic risks of diabetes and importance of proper glucose control, dangers of neuropathy and loss of gift of pain and risk stratifica tion and exam frequency. Patient was educated on high pressure areas including risks and offloading solutions. Reviewed with patient proper foot care instructio ns and daily self-exami nation and monitoring of the feet. Onychomycosis 485623466 B35.1 [place] - lesion 420443795 L84 Xerosis du e to atopic dermatitis 033719370 L85.3 The patient was educated regarding proper hydration of their feet/ankle s and the patient was given several recommenda tions for proper creams to protect/hy drate and keep the area healthy.-c ontinue ammonium lactate 12% lotion bid Anhidrosis 58335961 L74. 4 The patient was educated regarding proper hydration of their feet/ankle s and the patient was given several recommenda tions for proper creams to protect/hy drate and keep the area healthy. Acquired h ammer toe of left foot 0878354214 622192 M20.42 M20.41 The patient was educated regarding how to mechanical ly stabilize their deformity. The patient was given education about shoe recommenda tions specific for the condition. The patient was educated about custom orthotics and how appropriat e shoes and orthotics can prevent further worsening of the deformity. The patient was educated about how bad shoe habits can worsen the condition. NSAIDS, P.T., injections and other conservati ve treatments were discussed. Both surgical and non surgical treatments were discussed, but conservati ve options were emphasized . Pain in left foot 474952 1539 75417 M79.672 Pain in right foot 84964 54267 89863 M79.671 Metatarsal oumou of left foot 1729490401 63247 M77.42 M77.41 The patient was educated regarding how to mechanical ly stabilize their deformity. The patient was given education about shoe recommenda tions specific for the condition. The patient was educated about custom orthotics and how appropriat e shoes and orthotics can prevent further worsening of the deformity. The patient was educated about how bad shoe habits can worsen the condition. NSAIDS, P.T., injections and other conservati ve treatments were discussed. Both surgical and non surgical treatments were discussed, but conservati ve options were emphasized .-continue physical therapy exercises at home as directed by physical therapy Diabetic foot ulcer 3710 24236 E13.872 [id number] [facility]HENG MU[facility] [address] [address] 03/07/2023 11:14:37 03/10/2023 11:47:00 Diabetic peripheral neuropathy 473261268 E11.42 Patient was educated about the systemic risks of diabetes and importance of proper glucose control, dangers of neuropathy and loss of gift of pain and risk stratifica tion and exam frequency. Patient was educated on high pressure areas including risks and offloading solutions. Reviewed with patient proper foot care instructio ns and daily self-exami nation and monitoring of the feet. Onychomycosis 811521619 B35.1 [place] - lesion 382560009 L84 Xerosis du e to atopic dermatitis 095419724 L85.3 The patient was educated regarding proper hydration of their feet/ankle s and the patient was given several recommenda tions for proper creams to protect/hy drate and keep the area healthy.-c ontinue ammonium lactate 12% lotion bid Acquired h ammer toe of left foot 6870068512 019410 M20.42 M20.41 The patient was educated regarding how to mechanical ly stabilize their deformity. The patient was given education about shoe recommenda tions specific for the condition. The patient was educated about custom orthotics and how appropriat e shoes and orthotics can prevent further worsening of the deformity. The patient was educated about how bad shoe habits can worsen the condition. NSAIDS, P.T., injections and other conservati ve treatments were discussed. Both surgical and non surgical treatments were discussed, but conservati ve options were emphasized . Pain in left foot 014297 2101 68413 M79.672 Metatarsal oumou of left foot 0028381513 50166 M77.42 M77.41 The patient was educated regarding how to mechanical ly stabilize their deformity. The patient was given education about shoe recommenda tions specific for the condition. The patient was educated about custom orthotics and how appropriat e shoes and orthotics can prevent further worsening of the deformity. The patient was educated about how bad shoe habits can worsen the condition. NSAIDS, P.T., injections and other conservati ve treatments were discussed. Both surgical and non surgical treatments were discussed, but conservati ve options were emphasized .-continue physical therapy as directed Bilateral atherosclerosis of arteries of lower limbs 1795544188 0131764 I70.203 Localized edema 82079398 4 R60.0 Pain in right foot 94772 16156 58887 M79.182 [id number] MD [facility] (Adult Med) [facility] [place] [address] 03/27/2023 12:26:21 03/31/2023 13:26:10 Benign hypertension 68633168 I10 Off Losartan as he felt it caused edema and MSK painStart HCTZ, side effects were discussed OV 12/06/2022U ncontrolle d, start Losartan Type 2 davey betes mellitus without complication 466129092 E11.9 Discontinu e Metformin (The patient is refusing the medication )Endocrino logist as referredSt art Jardiance, side effects were discussed, including but not limited to balanitis, UTIS and NF(He apparently also now has private insurance) OV 12/06/2022H BA1C 5.8% OV 3D iscussed, his HBA1C is 6.6%He has restarted his Metformin and he is waiting to get in to see the endocrinol ogist. Goiter 0135380 E04.9 Discussed Diastasis recti 12318656 M62.08 Discussed Anxiety 53313339 F41.9 Laboratory test result abnormal 615054624 R89.9 Gout 52782677 M10.9 Edema of l ower extremity 539273592 R60.0 Airways ob struction reversible 525572352 J98.8 [id number] ZHENG MUÑOZ DPM [facility] [address] [address] 04/23/2023 15:07:04 04/24/2023 07:31:35 Diabetic peripheral neuropathy 623003526 E11.42 Patient was educated about the systemic risks of diabetes and importance of proper glucose control, dangers of neuropathy and loss of gift of pain and risk stratifica tion and exam frequency. Patient was educated on high pressure areas including risks and offloading solutions. Reviewed with patient proper foot care instructio ns and daily self-exami nation and monitoring of the feet. Onychomycosis 005014595 B35.1 [place] - lesion 608225511 L84 Xerosis du e to atopic dermatitis 324525119 L85.3 The patient was educated regarding proper hydration of their feet/ankle s and the patient was given several recommenda tions for proper creams to protect/hy drate and keep the area healthy.-c ontinue ammonium lactate 12% lotion bid Acquired h ammer toe of left foot 9563624514 916313 M20.42 M20.41 The patient was educated regarding how to mechanical ly stabilize their deformity. The patient was given education about shoe recommenda tions specific for the condition. The patient was educated about custom orthotics and how appropriat e shoes and orthotics can prevent further worsening of the deformity. The patient was educated about how bad shoe habits can worsen the condition. NSAIDS, P.T., injections and other conservati ve treatments were discussed. Both surgical and non surgical treatments were discussed, but conservati ve options were emphasized . Pain in left foot 622414 2093 35430 M79.672 Metatarsal oumou of left foot 3965061724 98584 M77.42 M77.41 The patient was educated regarding how to mechanical ly stabilize their deformity. The patient was given education about shoe recommenda tions specific for the condition. The patient was educated about custom orthotics and how appropriat e shoes and orthotics can prevent further worsening of the deformity. The patient was educated about how bad shoe habits can worsen the condition. NSAIDS, P.T., injections and other conservati ve treatments were discussed. Both surgical and non surgical treatments were discussed, but conservati ve options were emphasized .-continue physical therapy as directed Bilateral atherosclerosis of arteries of lower limbs 2863883179 5212652 I70.203 reviewed marilyn and arterial duplex of b/l lower legs with patient Localized edema 03129288 4 R60.0 Pain in right foot 67409 47417 45235 M79.540 [id number] ZHENG MUÑOZ DPM [facility] [address] [address] 07/21/2023 10:47:59 07/28/2023 09:23:47 Diabetic peripheral neuropathy 907219068 E11.42 Patient was educated about the systemic risks of diabetes and importance of proper glucose control, dangers of neuropathy and loss of gift of pain and risk stratifica tion and exam frequency. Patient was educated on high pressure areas including risks and offloading solutions. Reviewed with patient proper foot care instructio ns and daily self-exami nation and monitoring of the feet. Onychomycosis 533371510 B35.1 [place] - lesion 413359100 L84 Xerosis du e to atopic dermatitis 636216113 L85.3 The patient was educated regarding proper hydration of their feet/ankle s and the patient was given several recommenda tions for proper creams to protect/hy drate and keep the area healthy.-c ontinue ammonium lactate 12% lotion bid Pain in left foot 251360 6151 42291 M79.672 Metatarsal oumou of left foot 4879124163 50491 M77.42 M77.41 The patient was educated regarding how to mechanical ly stabilize their deformity. The patient was given education about shoe recommenda tions specific for the condition. The patient was educated about custom orthotics and how appropriat e shoes and orthotics can prevent further worsening of the deformity. The patient was educated about how bad shoe habits can worsen the condition. NSAIDS, P.T., injections and other conservati ve treatments were discussed. Both surgical and non surgical treatments were discussed, but conservati ve options were emphasized .-continue physical therapy as directed Bilateral atherosclerosis of arteries of lower limbs 5028997486 7200719 I70.203 reviewed marilyn and arterial duplex of b/l lower legs with patient Localized edema 42811151 4 R60.0 Pain in right foot 13665 68887 12941 M79.671 Plantar fasciitis 677294 003 M72.2 Acquired h ammer toe of left foot 2307899307 702806 M20.40 The patient was educated regarding how to mechanical ly stabilize their deformity. The patient was given education about shoe recommenda tions specific for the condition. The patient was educated about custom orthotics and how appropriat e shoes and orthotics can prevent further worsening of the deformity. The patient was educated about how bad shoe habits can worsen the condition. NSAIDS, P.T., injections and other conservati ve treatments were discussed. Both surgical and non surgical treatments were discussed, but conservati ve options were emphasized . [id number] Jorge Batista MD [facility] (Adult Med) [address] [place] [address] 07/29/2023 11:01:00 07/30/2023 09:27:54 Perforation of nasal septum [id number] J34.89 no therapy follow back if he has problems [id number] ZHENG MUÑOZ DPM [facility] [address] [address] 09/03/2023 15:54:04 09/04/2023 11:04:20 Diabetic peripheral neuropathy [id number] E11.42 Patient was educated about the systemic risks of diabetes and importance of proper glucose control, dangers of neuropathy and loss of gift of pain and risk stratifica tion and exam frequency. Patient was educated on high pressure areas including risks and offloading solutions. Reviewed with patient proper foot care instructio ns and daily self-exami nation and monitoring of the feet. Onychomycosis [id number] B35.1 [place] - lesion 814333372 L84 Xerosis du e to atopic dermatitis 900186465 L85.3 The patient was educated regarding proper hydration of their feet/ankle s and the patient was given several recommenda tions for proper creams to protect/hy drate and keep the area healthy.-c ontinue ammonium lactate 12% lotion bid Metatarsal oumou of left foot [id number] 85006 M77.40 The patient was educated regarding how to mechanical ly stabilize their deformity. The patient was given education about shoe recommenda tions specific for the condition. The patient was educated about custom orthotics and how appropriat e shoes and orthotics can prevent further worsening of the deformity. The patient was educated about how bad shoe habits can worsen the condition. NSAIDS, P.T., injections and other conservati ve treatments were discussed. Both surgical and non surgical treatments were discussed, but conservati ve options were emphasized .-Rx: physical therapy for rom, stretching , strengthen ing, evaluate and treat Bilateral atherosclerosis of arteries of lower limbs [id number] 4562096 I70.203 reviewed marilyn and arterial duplex of b/l lower legs with patient Localized edema 72027518 4 R60.0 Pain in right foot 36895 83435 99415 M79.671 Plantar fasciitis 397410 003 M72.2 Acquired h ammer toe of left foot 6123471881 344635 M20.40 The patient was educated regarding how to mechanical ly stabilize their deformity. The patient was given education about shoe recommenda tions specific for the condition. The patient was educated about custom orthotics and how appropriat e shoes and orthotics can prevent further worsening of the deformity. The patient was educated about how bad shoe habits can worsen the condition. NSAIDS, P.T., injections and other conservati ve treatments were discussed. Both surgical and non surgical treatments were discussed, but conservati ve options were emphasized . 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 Gout 68323621 M10.9 Anxiety disorder 1064827 06 F41.9 Venereal d isease screening 996852868 Z11.3 He has requested to be re-screene d. Body mass index 40+ - severely obese 268022994 Z68.41 [id number] MD [facility] (Adult Med) [address] [place] [phone] 01/28/2024 14:54:37 01/29/2024 09:47:08 Administration of influenza vaccine 81291711 Z23 Snoring 16775362 R06.83 Malaise and fatigue 2717 01841 R53.83 Type 2 davey betes mellitus without complication 401748822 E11.9 Adult heal th examination 506470397 Z00.01 [id number] MD [facility] (Adult Med) [address] [place] [phone] 04/20/2024 16:02:07 04/22/2024 11:12:04 Morbid obesity 810214380 E66.01 Type 2 davey betes mellitus without complication 121532933 E11.9 HBA1C 6.1% on 04/12/2024 Increase Trulicity to 1.5 mg, GI side effects were discussed Hyperlipidemia 96787959 E78.5 Discussed Pain of ri ght ankle joint 6312777016 9180760 M25.571 Bilateral spider veins of lower limbs 2032816131 9912045 I78.1 Laboratory test result abnormal 012609863 R89.9 He has a mild leukocytos is and erythrocyt osis.Smoki ng cessation was discussed Painless r ectal bleeding 111597552 K62.5 [id number] Ronnie German MD [facility] (Adult [facility]) [address] [place] [phone] 10/13/2024 16:17:56 10/14/2024 09:12:57 Musculoskeletal pain 672391451 M79.18 371309 Obstructiv e sleep apnea syndrome 29135795 G47.33 873639 Pharyngeal swelling 4215 45294 R22.1 146723 Difficult to palpate a mass or an enlargemen t Gastro-eso phageal reflux disease with esophagitis 025203090 K21.00 5299402448 Rectal hemorrhage 751429 02 K62.5 72826 Type 2 davey betes mellitus 55786051 E11.9 [id number] Managed by the endocrinol ogist Health Concerns Section Related Observation LastModified by Organization Detai ls LastModified Time None Recorded Concern Status LastModified by Organization Details LastModified Time None Recorded Advance Directives Directive N: Payers Insurance Date Sequence Insurance Name Policy Number Policy Ashley Covered Member ID Ashley Member ID Guarantor Name 02/24/2025 1 [facility] (MEDICAID HMO) [id number] Isael Chow [id number] Isael Chow 02/24/2025 1 [facility] [facility] - GALE Chow [id number] Isael Chow 02/24/2025 1 [place] DEPARTMENT [place] PUBLIC AID Isael Chow [id number] Isael Chow 02/24/2025 2 [facility] (MEDICAID HMO) [id number] Isael Chow [id number] Isael Chow 02/24/2025 1 [facility] - [employer] - [employer] [id number] Isael Chow [id number] Isael Chow Notes Date Note Type Note Provider Name and Address Organization Details Recorded Time 09/03/2023 text/html ROS as noted in the HPI Patient presents today for evaluation and treatment of nail deformities as well as generalized foot care. The patient states their nails are uncomfortable. The patient has been unable to provide self care due to the severe nature of the deformity and their medical condition(s). The patient is receiving medically necessary foot care in order to prevent further problems as well as to relieve irritation and discomfort. Patient relates a history of diabetes and cannot recall last blood glucose patient states sharp pain graded 3/10 in the balls of b/l foot especially when standing on feet for over 8 hours. pain is relieved by rest and greatest when walking Patient presents c/o sharp pain in his right heel graded 10/10 beginning 2 months ago after a long day of walking. Patient relates pain greatest with first step of the day and after periods of sitting and pain is relieved by rest Denies nausea, vomiting, fever, chills, shortness of breath, chest pain, difficulty breathing, calf pain. Patient reports thickened skin on the inside of his big toes, outer feet and inner heels, thickened toenails, toe nail changes, skin changes on lower legs, tingling and numbness in toes and feet ZHENG MUÑOZ, [address] [place], [address], [place] [facility] 09/03/2023 17:06:12 09/08/2023 text/html Hypertension F/UReported by PatientHPIFor associated symptoms, patient reportsno dizziness,no lightheadedness,no chest pain,no shortness of breath,no palpitations,no edema, andno calf pain with exertion. For lifestyle, patient reportsregular exerciseandlimiting/a voiding salt. For medications, patient reportstaking medications as directed,no side effects from medication, andchecks blood pressure at home, range: (high). Diabetes F/UReported by PatientHPIFor associated symptoms, patient reportsweight loss (9 lbs)but reportsno weight gain,no dizziness,no sweats,no headaches,no confusion,no increased thirst,no increased appetite,no increased urination,no blurred vision,no numbness of feet, andno calluses on feet. For context, patient reportsnormal range of home blood sugars (in the low 100s),seeing eye doctor regularly, andchecking feet regularly.ROS as noted in the HPI I need a higher dose of the blood pressure medicineI would like to get a STD check up Mr Claudine reports higher than normal blood pressure readings and LE edema despite compliance with his HCTZ. He had unprotected sex recently and even though he has no symptoms, he would like to be screened. Ronnie German MD Attn: Accounting,[address] [facility], [place], [address], [facility] 09/08/2023 13:27:37 01/28/2024 text/html Diabetes F/URepo rted by PatientHPIFor associated symptoms, patient reportsweight gain (8 lbs)but reportsno weight loss,no dizziness,no sweats,no headaches,no confusion,no increased thirst,no increased appetite,no increased urination,no blurred vision,no numbness of feet, andno calluses on feet. For labs, patient reportslast a1c result: 6.1%. For context, patient reportsnormal range of home blood sugars (in the low 100s),seeing eye doctor regularly,checking feet regularly,taking aspirin daily,not missing doses of medications, andno side effects from medications.ROS as noted in the HPI I was looking at those medicines that I take and the side effect is fatty liver.I am always tired Ms Claudine smith, he was uninsured and he was unable to follow up. Ronnie German MD Attn: Accounting,[address] [facility], [place], [address], [facility] 01/28/2024 19:41:12 04/20/2024 text/html Diabetes F/URepo rted by PatientHPIFor labs, patient reportslast a1c result: 6.1%. For context, patient reportstaking aspirin daily,not missing doses of medications, andno side effects from medications. For associated symptoms, patient reportsno weight gain,no weight loss,no dizziness,no sweats,no headaches,no confusion,no increased thirst,no increased appetite,no increased urination,no blurred vision,no numbness of feet, andno calluses on feet.ROS as noted in the HPI Hopefully goodI don't think I can go there, he don't take [place]:I was wiping blood Ms Claudine smith with multiple complaints, he had some BRBPR which he believes were from hemorrhoids. 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 He has been compliant with all his medications and diet, but he does not feel that the Trulicity is suppressing his appetite. He also has left ankle pain and spider veins Ronnie German MD Attn: Accounting,[address] [facility], [place], [address], [facility] 04/20/2024 19:40:54 10/13/2024 text/html Musculoskeletal PainReported by PatientHPIFor quality, patient reportssharp. For location, patient reportspain is not radiating,lumbar spine, andbilateral hip. For severity, patient reportssame. For duration, patient reportspresent for >12 months. For context, patient reportsprior back problemsandused medication for back pain. For alleviating factors, patient reportsrelieved by changing position. For aggravating factors, patient reportsmovement/posit ioning. For associated symptoms, patient reportsno fever,no weak limbs,no tingling,no numbness of the legs/feet, andno incontinence. For adl (activities of daily living), patient reportsimprove with medication.ROS as noted in the HPI I am having rotten egg burstsI would like to get on something for my pain, my hips, my lower backI have bad heartburnMy throat Mr Chow returns, his patch press operator switched him from Trulicity to Victoza, he feels like his anterior neck is swollen and his burps smell like rotten eggs. He has since been diagnosed with MAGGIE and he may qualify for a different medication, possibly Zepbound. He has bad heartburn and he has been taking Tums, but also admits to eating late. He also has generalised MSK pain, rectal bleeding once and a skin lesion. Ronnie German MD Attn: Accounting,[address] [facility], [place], [address], [facility] 10/13/2024 18:33:32
--- OUTSIDE RECORDS SUMMARY | 2025-03-18 08:41 | XMS_ITS | Clinical Summary ---
Author Organization [facility] Address [address] [place] [phone] Phone Care Team Providers Care [employer] Name Role Phone Ronnie Martins MD Primary Care Provider [phone] Social History Tobacco Use Types Packs/Day Years [...] (1 of 3 - 19+ 3-dose series) 07/18 HPV VACCINES (1 - 3-dose SCDM series) 2012 INFLUENZA VACCINE (#1) 2024 Insurance [place] [facility] OPEN ACCESS Care Teams [employer] Relationship Specialty Start Date End Date Ronnie Martins MD PCP - General Internal Medicine 12/14/14
== END 2025-03-18 08:25 | disposition home or self-care (01) ==
LOC: ANHIMG 08:27
PROVIDERS: PCP Internal Medicine Infectious Disease; Visit Provider Internal Medicine Infectious Disease
DX: E04.9 Nontoxic goiter, unspecified (principal); E07.89 Other specified disorders of thyroid; R22.1 Localized swelling, mass and lump, neck
CPT/HCPCS: 76536